=== PATIENT | male | born 1970 | race Caucasian/White ===

== ENCOUNTER 2018-05-15 10:41 | Inpatient (IN) | payer MEDICARE, BC ==
[~2018-05-15] VITALS: Ht 185.4 cm; Wt 73.0 kg
[2018-05-15 10:49] VITALS: BP 190/87
[2018-05-15] MEDS ORDERED: ASTAGRAF XL1 MG PO (10:57)
[2018-05-15] MEDS ORDERED: ONDANSETRON ODT8 MG PO (10:57)
[2018-05-15] MEDS ORDERED: HYDRALAZINE 2525 MG PO ×2 (10:58→11:00)
[2018-05-15] MEDS ORDERED: TRAZODONE HCL50 MG PO (10:58)
[2018-05-15] MEDS ORDERED: PRAVACHOL20 MG PO (10:58)
[2018-05-15] MEDS ORDERED: COREG25 MG PO (10:59)
[2018-05-15] MEDS ORDERED: MYCOPHENOLIC A360 MG PO (10:59)
[2018-05-15] MEDS ORDERED: AMITRIPTYLINE H10 M3 PO (11:00)
[2018-05-15] MEDS ORDERED: PLAVIX 75 MG TA75 M1 PO (11:01)
[2018-05-15 11:21] LABS: ABSOLUTE BASOPHILS 0.1 thou/uL (0.0-0.2); ABSOLUTE EOSINOPHILS 0.4 thou/uL (0.0-0.7); ABSOLUTE LYMPHOCYTES 0.8 thou/uL (0.8-5.3); ABSOLUTE MONOCYTES 0.8 thou/uL (0.0-1.2); ABSOLUTE NEUTROPHILS 5.8 thou/uL (1.6-8.1); EOSINOPHILS 4.8 %; HEMATOCRIT 34.9 % (42.0-52.0); HEMOGLOBIN 11.4 gm/dL (14.0-18.0); LYMPHOCYTES 10.1 %; MCH 29.5 pg (26.0-34.0); MCHC 32.7 g/dL (28.0-37.0); MCV 90.4 fL (80.0-100.0); MONOCYTES 10.6 %; MPV 8.3 fl. (7.2-11.1); NUCLEATED RBCS 0 /100WBC; PLATELET COUNT* 165 thou/uL (150-400); POLYS 73.5 %; RBC 3.86 mil/uL (4.50-6.00); RDW-CV 17.2 % (10.5-14.5); WBC 7.9 thou/uL (4.0-11.0)
[2018-05-15 11:29] LABS: APTT 28.5 Seconds (25.0-31.3); INR 1.1; PROTIME 10.9 Seconds (9.20-11.50)
[2018-05-15 11:36] LABS: ANION GAP 11 mmol/L (7-16); BUN 64 mg/dL (7-18); CALCIUM 8.8 mg/dL (8.5-10.1); CHLORIDE 95 mmol/L (98-107); CO2 28 mmol/L (21-32); CREATININE 15.8 mg/dL (0.6-1.3); GLUCOSE 150 mg/dL (70-99); SODIUM 134 mmol/L (136-145)
[2018-05-15 11:37] LABS: POTASSIUM 6.5 mmol/L (3.5-5.1)
[2018-05-15 11:41] LABS: ALBUMIN 3.5 g/dL (3.4-5.0); ALKALINE PHOSPHATASE 70 U/L (46-116); SGOT 24 U/L (15-37); SGPT 18 U/L (30-65); TOTAL BILIRUBIN 0.6 mg/dL (<0.1-1.0); TROPONIN-I LEVEL <0.06 ng/mL (<0.06)
[2018-05-15 11:42] LABS: NT-PRO BRAIN NAT PEPTIDE > 35000 pg/mL (<300)
[2018-05-15 14:08] VITALS: BP 189/77
--- NOTE | 2018-05-15 16:30 | NUR ---
PT REPORT RECIEVED FROM ED NURSE. PT STRAIGHT WENT FOR DIALYSIS. CALLED STATING TO GIVE 100 MG HYDRALAZINE PO IN THE DIALYSIS. MEDICINE TAKEN TO DIALYSIS AND GIVEN, BP-225/112MMHG. PT WAS ALERT.
--- NOTE | 2018-05-15 16:41 | EKG ---
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: Maggie LOFTON : 1970 Requested By: Virgilio Huynh Order Number: [id number] MD: Alireza Arnold Measurements Intervals Bowman Rate: 68 P: 18 AL: 139 QRS: -15 QRSD: 91 T: 93 QT: 403 QTc: 429 Interpretive Statements Sinus rhythm Borderline left axis deviation Borderline T wave abnormalities No previous ECG available for comparison Electronically Signed On 05-15-2018 16:41:07 CDT by Alireza Arnold [email or web address] <ELECTRONICALLY SIGNED> By: Alireza Arnold MD, [facility] 05/15/18 1641 57 Alireza Arnold MD, FACC /EPI
[2018-05-15 18:00] VITALS: BP 146/72
--- NOTE | 2018-05-15 18:59 | NUR ---
PT RECIEVED FROM DIALYSIS AT 1800. ALERT AND ORIENTED X4. SAT MAINTAINED IN RA. CALL LIGHT WITHIN REACH AND FALL PRECAUTIONS MAINTAINED. SR RUNNING ON TELE MONITOR. UP WITH STANDBY ASSIST. VSS AND RECORDED. 4L FLUID TAKEN OF DIALYSIS. DENIES ANY PAIN AND SOB AT THE MOMENT. HAS ADEQUATE APETITE. HAS FISTULA ON LEFT WRIST. NO SIGNS OF BLEEDING. WILL CONTINUE TO MONITOR.
[2018-05-15] MEDS ORDERED: PROGRAF5 MG PO (19:10)
[2018-05-15] MEDS ORDERED: MYFORTIC360 MG PO (19:10)
--- NOTE | 2018-05-15 19:12 | NUR ---
PT COMPLAINED OF ITCHINESS ON HIS BACK AND HEAD, INFORMED DR. ORDAZ, NO ORDERS AT THE MOMENT. STATED WILL KEEP AN EYE ON HIM.
[2018-05-15 19:40] VITALS: BP 145/70
[2018-05-16] VITALS: BP 177/89
[2018-05-16 04:00] VITALS: BP 192/97
[2018-05-16 08:00] VITALS: BP 184/92
[2018-05-16 08:14] LABS: CALCIUM 8.6 mg/dL (8.5-10.1); POTASSIUM 5.6 mmol/L (3.5-5.1)
[2018-05-16 08:15] LABS: CREATININE 10.7 mg/dL (0.6-1.3)
--- NOTE | 2018-05-16 11:42 | NUR ---
Spoke with Pt's via phone. Pt out of room at dialysis. informs that Pt was current at [facility], they have recently moved to [place] and Pt has been transferred to [facility], but Pt does not have transportation, their car was recently repossessed. DEV spoke with and , CM will try and get Pt transferred to the [facility] BS clinic, CM called [facility] and confirmed that they do have chair availability. CM spoke with SW at [facility], the only transportation options available in [facility] is the [employer] bus [phone], [employer] does not provide transportation on the weekend. CM contacted [employer], transportation would cost $62/round trip each day that Pt needs to be at dialysis. informed that they are unable to afford this amt at this time. did ask that CM continue to work on the transfer to [facility] and she will check with some friends that live in the same mobile home park to see if they can help with transportation. CM faxed facesheet to Fiordaliza at [facility], to determine if Pt will qualify for [place], if Pt does, Pt will be able to use [employer] transportation. [employer] is not available in this area. states that Pt is normally independent, she completes the cooking and cleaning. Pt uses home o2, provided through [employer]. Pt has been on dialysis since 2013. No hx of HH or SNF. DC mission planner to contact [facility] admissions to determine their ability to accept Pt. Following.
[2018-05-16 12:50] VITALS: BP 187/99
--- NOTE | 2018-05-16 14:00 | NUR ---
OFFICE EXECUTIVE SPOKE TO BHAVNA (INTAKE, PATIENT ADMISSION SERVICES) WITH [facility]. D/C TIMBER SURVEYOR INFORMED BHAVNA OF PATIENT'S SITUATION AND REQUEST TO UTILIZE [facility] FOR DIALYSIS. BHAVNA INFORMS THAT THE PATIENT WOUDL NEED TO BE PROCESSED A NEW ADMISSION, AND [facility] IS ABLE TO REQUEST INFO FROM THE [facility]. BHAVNA INFORMS THAT A ECONOMIC DEVELOPER WILL CONTACT CM TO F/U AND IFNOR OF ADDITIONAL INFO NEEDED. D/C TIMBER SURVEYOR FAXED [facility] ADMISSIONS THE DIALYSIS ADMISSIONS CHECKLIST, PATIENT'S FACESHEET, H&P, LABS, FLOW SHEETS. CM WILL REMAIN AVIALABLE TO ASSIST AND FOLLOW NEEDED.
[2018-05-16 15:34] VITALS: BP 154/75
--- NOTE | 2018-05-16 18:48 | NUR ---
RECEIVED REPORT. ASSUMED CARE OF PT AROUND 0730. PT A&O X4, VSS, O2 SAT >90% ON RA. PT STATED THAT HE USES O2 2L PER NC PRN AT HOME - OXYGEN TUBING PROVIDED AND PT USED 2L PER NC NEEDED; O2 SATS REMAINED >90%. CARE TRANSITIONS MANAGER IN PLACE TRACING SR WITH NO CHANGES THIS SHIFT. AM ASSESSMENT AND VITALS COMPLETED CHARTED. PT DENIED PAIN OR DISCOMFORT THIS SHIFT. PT WENT FOR DIALYSIS THIS AM AND RETURNED AROUND 1250. PT TOLERATING DIET. PT ABLE TO SHOWER THIS AFTERNOON. IV INTACT. PT'S CALLED - UPDATE GIVEN. CASE MANAGEMENT WORKING WITH PT TO ARRANGE OUTPATIENT DIALYSIS CARE. PT CURRENTLY RESTING IN BED. CALL LIGHT IS WITHIN REACH. FALL PRECAUTIONS ARE IN PLACE. HOURLY ROUNDING PERFORMED.
[2018-05-16 19:08] LABS: HEPATITIS B SURFACE AG Negative (Negative)
[2018-05-16 19:10] VITALS: BP 131/71
--- NOTE | 2018-05-16 23:00 | NUR ---
ASSESSMENT COMPLETE. VSS AT THIS TIME. PT DID C/O NAUSEA, MEW ORDER RECEIVED FOR PO ZOFRAN. PT DENIES PAIN OR ANY FURTHER NEEDS. PT TRACING SR ON TELEMETRY. CLWR.
[2018-05-17 04:21] VITALS: BP 166/80
--- NOTE | 2018-05-17 06:35 | NUR ---
PT S;EPT WELL T/O THIS SHIFT. NO C.O PAIN. PT REPORTS THAT ZOFRAN WAS EFFECTIVE FOR NAUSEA AND REPORTS THAT HE GETS NAUSEATED FREQUENTLY AND USES ZOFRAN AT HOME WELL. NO URINE OUTPUT THIS SHIFT PT REPORTS THAT THIS IS HIS BASELINE.
[2018-05-17 08:19] VITALS: BP 163/75
[2018-05-17 12:18] VITALS: BP 137/66
[2018-05-17 16:24] VITALS: BP 141/74
--- NOTE | 2018-05-17 18:02 | NUR ---
PT WITHOUT C/O TODAY. PT ABLE TO MAKE NEEDS KNOWN,CALL LIGHT IN REACH
[2018-05-17 19:00] VITALS: BP 138/70
--- NOTE | 2018-05-17 22:35 | NUR ---
INITIAL ASSESSMENT COMPLETE. PT TRACING SR ON MONITOR. VSS. PT DENIES PAIN, N/V/D. PT IS UP INDEPENDENT TO BR. NO URINE OUTPUT PT IS OLIGURIC. SEE ASSESSMENT FOR FURTHER DETAILS. CLWR.
[2018-05-18] VITALS (7 sets, daily range): BP systolic 131–157; BP diastolic 67–77
--- NOTE | 2018-05-18 06:06 | NUR ---
PT HAS SLEPT WELL T/O THIS SHIFT. NO NEW CONCERNS. CLWR
--- NOTE | 2018-05-18 08:29 | NUR ---
PT SITTING UP ON SIDE OF BED, APPEARS ALERT O X 4, DENIES CHEST PAIN, SOB, PAIN OR DISCOMFORT
[2018-05-19 04:13] VITALS: BP 166/79
--- NOTE | 2018-05-19 04:46 | NUR ---
VITALS WNL. SEE MAR. SEE CHARTING. HOURLY ROUNDING FOR SAFETY.
[2018-05-19 04:53] LABS: ABSOLUTE BASOPHILS 0.1 thou/uL (0.0-0.2); ABSOLUTE EOSINOPHILS 0.3 thou/uL (0.0-0.7); ABSOLUTE LYMPHOCYTES 1.1 thou/uL (0.8-5.3); ABSOLUTE MONOCYTES 0.6 thou/uL (0.0-1.2); ABSOLUTE NEUTROPHILS 3.3 thou/uL (1.6-8.1); BASOPHILS 0.9 %; EOSINOPHILS 5.7 %; HEMOGLOBIN 11.5 gm/dL (14.0-18.0); LYMPHOCYTES 20.6 %; MCH 29.9 pg (26.0-34.0); MCHC 32.9 g/dL (28.0-37.0); MCV 90.9 fL (80.0-100.0); MONOCYTES 11.4 %; MPV 8.2 fl. (7.2-11.1); NUCLEATED RBCS 0 /100WBC; PLATELET COUNT* 167 thou/uL (150-400); POLYS 61.4 %; RBC 3.85 mil/uL (4.50-6.00); RDW-CV 16.2 % (10.5-14.5); WBC 5.4 thou/uL (4.0-11.0)
[2018-05-19 05:21] LABS: CALCIUM 8.5 mg/dL (8.5-10.1); CREATININE 11.4 mg/dL (0.6-1.3); POTASSIUM 4.8 mmol/L (3.5-5.1)
[2018-05-19 08:15] VITALS: BP 147/75
--- NOTE | 2018-05-19 09:13 | NUR ---
Spoke with [facility], regarding Pt transferring to the [place] location, BS clinic is reviewing and will request records from [facility]. They have a T-TH-Sat chair time available, should have a decision by the end of the day.
--- NOTE | 2018-05-19 09:49 | NUR ---
ASSUMED PT CARE AT 0730, FULL ASSESMENT DONE CHARTED. PT A/O X4, DENIES PAIN, VSS, SR ON THE MONITOR. PT TO HAVE DIALYSIS TODAY, PT WANTS TO KNOW IF HE WILL DC HOME AFTER DIALYSIS. NO ORDERS AT THIS TIME. PT USES CALL LIGHT APPROPRIALTY, UP AD KIRSTEN IN ROOM. WILL CONTINUE WITH PLAN OF CARE.
[2018-05-19 12:00] VITALS: BP 108/75
[2018-05-19] MEDS ORDERED: PHOSLO667 MG PO (12:55)
[2018-05-19] MEDS ORDERED: NORVASC10 MG PO (13:04)
[2018-05-19 14:20] VITALS: BP 108/75
--- NOTE | 2018-05-19 14:48 | NUR ---
CARBON COATING MACHINE OPERATOR CONTACTED [facility] ADMISSION SERVICES AND LEFT A VOICEMAIL FOR GERHARD (COORDINATOR) TO RETURN CALL TO DISCUSS ABILITY TO ACCEPT PATIENT FOR SERVICE IN THE [facility]. CM WILL REMAIN AVIALABLE TO ASSIST AND FOLLOW NEEDED.
[2018-05-19 15:15] VITALS: BP 122/65
--- NOTE | 2018-05-19 16:06 | NUR ---
DEV spoke with pediatric clinical dietician at [facility], she is requesting today's flowsheet and another copy of Hep B labs (previous copy was too dark). DEV faxed. Per pediatric clinical dietician, should have a decision tomorrow.
[2018-05-19 20:00] VITALS: BP 133/70
[2018-05-20] VITALS: BP 145/74
--- NOTE | 2018-05-20 00:21 | NUR ---
PT ALERT ORIENTED. AMBULATING IN HALLS. O2 AT 2 LITERS NC. PT REMOVES AT TIMES. ALSO HOME O2 AT 2 LITERS NC. MEDSURG STATUS. DENIES PAIN. L ARM AV FISTULA +THRILL +BRUIT.
[2018-05-20 04:00] VITALS: BP 155/75
[2018-05-20 07:55] VITALS: BP 141/66
--- NOTE | 2018-05-20 10:01 | NUR ---
Spoke with [facility], they have accepted Pt for a -Sat schedule, chair time will be 1130am. Awaiting confirmation fax. Pt to have dialysis today and dc afterwards. Pt to start at [facility] on 05/22.
--- NOTE | 2018-05-20 10:19 | NUR ---
SPOKEM WITH DR. BROOKS ABOUT DIALYSIS TODAY PRIOR TO DC DUE TO PATIENTS DAYS CHANGING TO T-TH-SAT AT [facility]. PER DR. BROOKS HE WILL SET HIM UP FOR DIALYSIS LATER THIS AFTERNOON. PATIENT INFORMED OF ABOVE INFORMATION.
--- NOTE | 2018-05-20 11:43 | NUR ---
PATIENT LEFT FOR DIALYSIS AT THIS TIME
[2018-05-20 16:34] VITALS: BP 146/72
--- NOTE | 2018-05-20 16:58 | NUR ---
PATIENT WAITING FOR [facility] TO TRANSPORT HOME. PER SHE HAS MADE ARRANGEMENTS FOR TRANSPORTATION TO DIALYSIS. PATIENT VERBALIZED UNDERSTANDING OF DC INSTRUCTIONS. IV REMOVED. DIALYSIS THIS AFTERNOON. VSS.
--- NOTE | 2018-05-20 16:58 | NUR ---
NURSING DOCUMENTATION BY PETR FAM REVIEWED.
[2018-05-20 17:20] VITALS: BP 146/72
--- NOTE | 2018-05-20 18:19 | NUR ---
PATIENT DISCHARGED WITH [facility] AT THIS TIME. VERBALIZED UNDERSTANDING OF DC INSTRUCTIONS. IV REMOVED. SCRIPT FOR NORVASC GIVEN.
--- NOTE | 2018-06-13 10:12 | CON ---
[address] [address] CONSULTATION Name: ASHTONANA Room: [address] IN M.R.#: [id number] Admission: 05/15/18 Attend Phys: Arabella Perez MD Discharge: 05/20/18 Date of : 72 Report #: [id number] THIS REPORT FOR: //name// CC: Richardson Perez DATE OF SERVICE: 05/16/2018 CONSULTING PHYSICIAN: Dr. Perez. REASON FOR NEPHROLOGY CONSULTATION: 1. End-stage renal disease. 2. Dialysis. REASON FOR ADMISSION: Hyperkalemia, missed dialysis. HISTORY OF PRESENT ILLNESS: This is a 47-year-old male who has past medical of end-stage renal disease, on hemodialysis every Saturday, Saturday and Saturday, who missed his dialysis for the last 3 treatments prior coming to the hospital yesterday. The patient has been on dialysis for the last 2 years and recently moved from [place] to [facility]. He was supposed to go to [facility] dialysis Unit, but he had lack of transportation and could not go for dialysis for the last 3 treatments. He came in yesterday with high blood pressures and his potassium was 6.5 and he was immediately dialyzed yesterday with 4 liters fluid removal and he was seen on dialysis again this morning. He is feeling now better. aquacultural worker supervisor here in the hospital is going to work with him for dialysis placement. ALLERGIES: ERYTHROMYCIN. REVIEW OF SYSTEMS: As mentioned in history of present illness, otherwise negative. He is not having shortness of breath, nausea, vomiting. He does not make much urine at all. HOME MEDICATIONS: Included ondansetron, pravastatin, trazodone, carvedilol, hydralazine, amitriptyline, ____, tacrolimus, mycophenolate. PAST MEDICAL AND SURGICAL HISTORY: Includes he is an end-stage renal disease patient, kidney transplant, pancreas transplant in 2009 and 3 cardiac stents and myocardial infarction. FAMILY HISTORY: Heart disease and hypertension. SOCIAL HISTORY: He lives at home with his . He is a current everyday smoker. Does not use drugs and [place] [address] CONSULTATION Name: KRISTINE ASHTON Room: [address]#: [id number] Admission: 05/15/18 Attend Phys: Arabella Perez MD Discharge: 05/20/18 Date of : 72 Report #: [id number] PHYSICAL EXAMINATION: VITAL SIGNS: Blood pressure is 184/92, respiratory rate 17, pulse rate is 83, temperature is 36.8. His pulse ox is 94% on room air. GENERAL: He is awake and alert, seen in dialysis. VITAL SIGNS: Stable. HEAD, EYES, EARS, NOSE AND THROAT: Mucous membranes are moist. NECK: There is no JVD. CHEST: Clear to auscultation bilaterally. No crackles or wheezing heard anteriorly. CARDIOVASCULAR: S1, S2 normal. No murmurs or rubs. ABDOMEN: Soft, nondistended, nontender. Bowel sounds present. EXTREMITIES: No lower extremity edema. Left arm AV fistula in use. NEUROLOGICAL FUNCTION: Gross neurological function is intact. PSYCHIATRIC: Mood and affect seems to be normal. LABORATORY DATA: His hemoglobin is 11.4. His potassium is 5.6. His sodium is 135. His chloride is 96. His BUN is 36. Other labs were reviewed. IMAGING: Chest x-ray was reviewed. ASSESSMENT: 1. End-stage renal disease, on hemodialysis, Saturday, Saturday and Saturday, missed dialysis before coming to the hospital. 2. Hyperkalemia, has improved after dialysis, 5.6 now. 3. Accelerated hypertension, he is improved after fluid removal with dialysis. 4. Anemia of chronic renal disease, hemoglobin 11.4, which is currently above goal. 5. History of diabetes type 2. 6. History of kidneys and pancreas transplant, on immunosuppressant therapy. PLAN: 1. Continue his immunosuppressant medication after verifying his dose. 2. He was seen on dialysis today and he was also dialyzed yesterday with 4 liters fluid removal. I think he should be okay for dialysis for next dialysis on Saturday now. Thank you for this consultation. I discussed above with the patient as well the patient's dialysis nurse. We will continue to follow along with you. <ELECTRONICALLY SIGNED> By: Tere Evans MD 06/13/18 1012 0924 0020Tere Evans MD /nt
== END 2018-05-20 18:23 | disposition home or self-care (01) | DRG 640 ==
LOC: M.ERS 10:41 → M.2W 12:02 → M.TBA-ER 12:02 → M.2W 14:27
PROVIDERS: Emergency Medicine Emergency Medical Services; Internal Medicine; ADMIT Family Medicine
PROC: 5A1D70Z Performance of Urinary Filtration, Intermittent, Less than 6 Hours Per Day (ICD-10-PCS; principal; 2018-05-16)
DX: E87.70 Fluid overload, unspecified (principal); N18.6 End stage renal disease; I12.0 Hypertensive chronic kidney disease with stage 5 chronic kidney disease or end stage renal disease; J96.10 Chronic respiratory failure, unspecified whether with hypoxia or hypercapnia; Z94.83 Pancreas transplant status; E87.5 Hyperkalemia; E11.22 Type 2 diabetes mellitus with diabetic chronic kidney disease; I25.10 Atherosclerotic heart disease of native coronary artery without angina pectoris; F17.210 Nicotine dependence, cigarettes, uncomplicated; D63.1 Anemia in chronic kidney disease; Z99.2 Dependence on renal dialysis; Z91.15 Patient's noncompliance with renal dialysis; Z79.899 Other long term (current) drug therapy; Z88.1 Allergy status to other antibiotic agents; Z95.5 Presence of coronary angioplasty implant and graft; I25.2 Old myocardial infarction; Z82.49 Family history of ischemic heart disease and other diseases of the circulatory system

== ENCOUNTER 2018-10-19 16:17 | Inpatient (IN) | payer MEDICARE, BC, MEDICAID ==
[~2018-10-19] VITALS: Ht 152.4 cm; Wt 80.7 kg
[~2018-10-19 16:17] MED LIST: AMITRIPTYLINE H10 M3 PO; ASTAGRAF XL1 MG PO; COREG25 MG PO; HYDRALAZINE 2525 MG PO; MYCOPHENOLIC A360 MG PO; MYFORTIC360 MG PO; NORVASC10 MG PO; ONDANSETRON ODT8 MG PO; PHOSLO667 MG PO; PLAVIX 75 MG TA75 M1 PO; PRAVACHOL20 MG PO; PROGRAF5 MG PO; TRAZODONE HCL50 MG PO
--- NOTE | 2018-10-19 16:30 | NUR ---
PT ARRIVED VIA AMBULANCE. TRANSFERRED FROM [facility] TO ER BED. EKG PERFORMED BY JEREMÍAS CARMONA. GIVEN TO DR. GORDON WHO IS IN ROOM. DR. GORDON CANCELLED CODE STEMI.
[2018-10-19 16:32] VITALS: BP 184/113
--- NOTE | 2018-10-19 16:43 | NUR ---
RADIOLOGY AT BEDSIDE PERFORMING CHEST XRAY.
[2018-10-19 16:52] LABS: ABSOLUTE BASOPHILS 0.1 thou/uL (0.0-0.2); ABSOLUTE EOSINOPHILS 0.3 thou/uL (0.0-0.7); ABSOLUTE LYMPHOCYTES 1.3 thou/uL (0.8-5.3); ABSOLUTE MONOCYTES 0.9 thou/uL (0.0-1.2); ABSOLUTE NEUTROPHILS 5.1 thou/uL (1.6-8.1); BASOPHILS 0.7 %; EOSINOPHILS 4.3 %; HEMOGLOBIN 14.8 gm/dL (14.0-18.0); MCH 31.2 pg (26.0-34.0); MCHC 33.6 g/dL (28.0-37.0); MCV 92.7 fL (80.0-100.0); MONOCYTES 11.2 %; MPV 7.8 fl. (7.2-11.1); NUCLEATED RBCS 0 /100WBC; PLATELET COUNT* 254 thou/uL (150-400); POLYS 66.8 %; RBC 4.74 mil/uL (4.50-6.00); RDW-CV 16.5 % (10.5-14.5); WBC 7.6 thou/uL (4.0-11.0)
[2018-10-19] MEDS ORDERED: MYFORTIC180 MG PO (16:55)
[2018-10-19] MEDS ORDERED: RENVELA800 MG PO (16:56)
[2018-10-19 17:02] LABS: APTT 26.6 Seconds (25.0-31.3); PROTIME 10.4 Seconds (9.20-11.50)
[2018-10-19 17:11] LABS: ALBUMIN 4.2 g/dL (3.4-5.0); ALKALINE PHOSPHATASE 97 U/L (46-116); ANION GAP 10 mmol/L (7-16); BUN 36 mg/dL (7-18); CALCIUM 9.3 mg/dL (8.5-10.1); CHLORIDE 91 mmol/L (98-107); CHOLESTEROL 121 mg/dL (<200); CO2 32 mmol/L (21-32); CREATININE 9.1 mg/dL (0.6-1.3); GLUCOSE 102 mg/dL (70-99); HDL CHOLESTEROL 48 mg/dL (>40); LDL CHOLESTEROL 55 mg/dL (<100); MAGNESIUM 2.7 mg/dL (1.8-2.4); POTASSIUM 5.7 mmol/L (3.5-5.1); SGOT 22 U/L (15-37); SGPT 13 U/L (30-65); SODIUM 133 mmol/L (136-145); TC:HDL 2.5 Ratio (Not establshd); TOTAL BILIRUBIN 0.7 mg/dL (<0.1-1.0); TOTAL PROTEIN 8.1 g/dL (6.4-8.2); TRIGLYCERIDE 91 mg/dL (<150); TROPONIN-I LEVEL 0.08 ng/mL (<0.06); VLDL 18 mg/dL (<40)
[2018-10-19 17:12] LABS: SERUM ASSESSMENT Clear
--- NOTE | 2018-10-19 17:46 | NUR ---
PATIENT GIVES HIS PERMISSION TO THIS NURSE TO GIVE HIS , GUILLE ASHTON (DANNER) ANY INFORMATION REQUESTED ON THE PATIENT'S PLAN OF CARE OR ON HIS BEHALF. THE PATIENT'S , GUILLE, CALLED AND ASKED ABOUT THE PATIENT'S CONDITION WHICH WAS COMMUNICATED TO HER. THE PATIENT'S TOLD THIS NURSE THAT THE PATIENT HAD 3 PREVIOUS STENTS PLACED IN HIS HEART; THREE WEEKS AGO, THE PATIENT HAD A FOURTH STENT PLACED AT [facility] DUE TO 90% BLOCKAGE. THE PATIENT'S THEN STATES THAT THE PATIENT HAS BEEN NONCOMPLIANT WITH TAKING ALL OF HIS MEDICATIONS, INCLUDING HIS ANTI-REJECTION MEDICATION SINCE HAVING HIS FOURTH STENT PLACED 3-4 WEEKS AGO. THIS INFORMATION WAS COMMUNICATED TO DR. GORDON. THE PATIENT'S , GUILLE, IS THE PATIENT'S DPOA AND REPORTS THAT SHE HAS ALL LEGAL PAPERWORK STATING THIS.
--- NOTE | 2018-10-19 18:13 | NUR ---
PT REQUESTED FOOD. PT GIVEN A SANDWICH, JELLO AND SPRITE WITH DR. GORDON'S APPROVAL. PT CAN EAT UNTIL MIDNIGHT, BUT THEN WILL REMAIN NPO PER DR. GORDON'S ORDERS.
[2018-10-19 18:43] VITALS: BP 162/93
[2018-10-19 20:10] VITALS: BP 153/86
[2018-10-20] VITALS: BP 135/73
[2018-10-20 04:00] VITALS: BP 156/82
--- NOTE | 2018-10-20 04:55 | NUR ---
PT CARE ASSUMED AT 1930. SAT MAINTAINED IN 2L NC. ALERT AND ORIENTED X4. CALL LIGHT WITHIN REACH AND BED IN LOW POSITION. DENIES PAIN AND SOB. HEPARIN DRIP RUNNING. HOURLY ROUNDING DONE FOR PT SAFETY.
--- NOTE | 2018-10-20 09:15 | NUR ---
REC'D REPORT FROM NOC RN, ASSUMED CARE OF PATIENT APPROX 0730. A&Ox4, ABLE TO COMMUNICATE NEEDS TO STAFF. ASSESSMENT COMPLETE, VS OBTAINED. GROUP BILLING COORDINATOR IN PLACE, SR. O2 SAT: 97% 2L O2. UP AD KIRSTEN IN ROOM WITH NONSKID SOCKS ON BLE. CALL LIGHT WITHIN REACH. HOURLY ROUNDING FOR SAFETY AND PT NEEDS.
[2018-10-20 10:05] VITALS: BP 147/83
[2018-10-20 11:41] VITALS: BP 158/87
[2018-10-20 15:40] VITALS: BP 157/84
[2018-10-20 22:15] VITALS: BP 118/62
[2018-10-21] VITALS: BP 124/58
[2018-10-21 04:00] VITALS: BP 139/61
--- NOTE | 2018-10-21 05:04 | NUR ---
PT CARE ASSUMED AT 1930. SAT MAINTAINED IN RA. ALERT AND ORIENTED X4. CALL LIGHT WITHIN REACH AND BED IN LOW POSITION. DENIES PAIN AND SOB. HOURLY ROUNDING DONE FOR PT SAFETY.
[2018-10-21 05:55] LABS: ALBUMIN 3.2 g/dL (3.4-5.0); CALCIUM 8.9 mg/dL (8.5-10.1); CREATININE 9.3 mg/dL (0.6-1.3); POTASSIUM 4.9 mmol/L (3.5-5.1)
--- NOTE | 2018-10-21 07:30 | NUR ---
ASSUMED CARE OF PT ASSESSED AND DOCUMENTED. PT IS ON CARDIAC MONITER TRACING SR HR 77. HE IS A&O WITH NO C/O PAIN. VSS WNL. PT IS ON ROOM AIR. HE IS AFEBRILE. PT HAS A L HAND FISTULA. PT BEING TAKEN TO DYALYSIS. HE REMAINS NPO FOR STRESS TEST TODAY.
[2018-10-21 07:34] VITALS: BP 153/78
[2018-10-21 08:00] VITALS: BP 153/78
--- NOTE | 2018-10-21 10:01 | EKG ---
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: : 1970 Requested By: Lester Lopez Order Number: [id number] MD: Jason Mota Measurements Intervals [place] Rate: 75 P: 45 [place]: 141 QRS: -20 QRSD: 96 T: 118 QT: 418 QTc: 467 Interpretive Statements Sinus rhythm Probable left atrial enlargement LVH with secondary repolarization abnormality Anterior ST elevation, probably due to LVH Compared to ECG 05/15/2018 10:58:17 Left ventricular hypertrophy now present Early repolarization now present ST (T wave) deviation now present T-wave abnormality no longer present Electronically Signed On 10-21-2018 10:01:00 CDT by Jason Mota [email or web address] <ELECTRONICALLY SIGNED> By: Jason Mota MD, FACC 10/21/18 1001 1630 1630 Jason Mota MD, FAC /EPI
--- NOTE | 2018-10-21 10:01 | EKG ---
[place] [address] ELECTROCARDIOGRAM REPORT Name: KRISTINE ASHTON Room: [address] ADM IN M.R.#: [id number] Admission: 10/19/18 Attend Phys: Priti Queen Discharge: Date of : 72 Report #: [id number] THIS REPORT FOR: //name// [facility] ED Test Date: 2018-10-19 Test Time: 17:20:05 Pat Name: KRISTINE ASHTON Department: Room: [address] Gender: M Dock Loader: Maggie GANDHI : 1970 Requested By: Lester Lopez Order Number: [id number] Reading MD: Jason Mota Measurements Intervals Cash Rate: 72 P: 27 [place]: 143 QRS: -19 QRSD: 97 T: 121 QT: 388 QTc: 425 Interpretive Statements Sinus rhythm Probable left atrial enlargement LVH with secondary repolarization abnormality Anterior ST elevation, probably due to LVH Compared to ECG 05/15/2018 10:58:17 Left ventricular hypertrophy now present Early repolarization now present ST (T wave) deviation now present T-wave abnormality no longer present Electronically Signed On 10-21-2018 10:01:32 CDT by Jason Mota [email or web address] <ELECTRONICALLY SIGNED> By: Jason Mota MD, FACC 10/21/18 1001 1720 1720 Jason Mota MD, FAC /EPI
--- NOTE | 2018-10-21 10:01 | EKG ---
[place] [address] ELECTROCARDIOGRAM REPORT Name: KRISTINE ASHTON Room: [address] ADM IN .R.#: [id number] Admission: 10/19/18 Attend Phys: Priti Queen Discharge: Date of : 72 Report #: [id number] THIS REPORT FOR: //name// [facility] ED Test Date: 2018-10-19 Test Time: 16:29:51 Pat Name: KRISTINE ASHTON Department: Room: [facility] Gender: M Director Of Property Management: : 1970 Requested By: Lester Lopez Order Number: [id number] MD: Jason Mota Measurements Intervals [place] Rate: 78 P: 40 IN: 164 QRS: -21 QRSD: 95 T: 115 QT: 405 QTc: 462 Interpretive Statements Sinus rhythm Left atrial enlargement LVH with secondary repolarization abnormality Anterior ST elevation, probably due to LVH Compared to ECG 05/15/2018 10:58:17 Atrial abnormality now present Left ventricular hypertrophy now present Early repolarization now present ST (T wave) deviation now present T-wave abnormality no longer present Electronically Signed On 10-21-2018 10:00:55 CDT by Jason Mota [email or web address] <ELECTRONICALLY SIGNED> By: Jason Mota MD, FACC 10/21/18 1000 1629 1629 Jason Mota MD, [facility] /EPI
--- NOTE | 2018-10-21 10:35 | CON ---
[address] [address] CONSULTATION Name: KRISTINE ASHTON Room: [address] IN ..#: [id number] Admission: 10/19/18 Attend Phys: Priti Queen Discharge: Date of : 72 Report #: [id number] THIS REPORT FOR: //name// CC: [facility] physician/PCP Lonnie King NEPHROLOGY CONSULTATION: CONSULTING PHYSICIAN: Lonnie King DO. REASON FOR CONSULTATION: End-stage kidney disease. HISTORY OF PRESENT ILLNESS: A 48-year-old gentleman with history of end-stage kidney disease who has been admitted with chest pain. Has history of coronary artery disease. He is being followed by Cardiology, currently n.p.o. pending Cardiology evaluation. Currently, has no complaints, felt he had dialysis on Saturday and is otherwise feeling well, has no complaints or concerns at this time. REVIEW OF SYSTEMS: Constitutional, psych, heme, eyes, ENT, respiratory, cardiac, GI, , endocrine, all negative except as documented above. PAST MEDICAL HISTORY: History of end-stage kidney disease, on hemodialysis, coronary artery disease, hypertension, paroxysmal AFib, history of kidney pancreas transplant in 2008, followed at [facility]. CURRENT MEDICATIONS: Reviewed. FAMILY HISTORY: Not pertinent in this 48-year-old gentleman. SOCIAL HISTORY: . PHYSICAL EXAMINATION: VITAL SIGNS: Blood pressure 158/87, pulse 72, temperature 36.8, respirations 18. GENERAL: No acute distress. EYES: Open. EARS: Externally normal. CARDIOVASCULAR: Regular rate. LUNGS: No crackles. ABDOMEN: Soft. MUSCULOSKELETAL: Nontender. PSYCHIATRIC: Awake, alert. LABORATORY DATA: White cell count 7.6, hemoglobin 14.8, platelets 254. Sodium 133, potassium 5.7, chloride 91, bicarbonate 32, BUN 36, creatinine 9.1, glucose 102, calcium 8.0, magnesium 2.7, albumin 4.2[place] [address] CONSULTATION Name: KRISTINE ASHTON Room: [address] IN [facility].#: [id number] Admission: 10/19/18 Attend Phys: Priti Queen Discharge: Date of : 72 Report #: [id number] ASSESSMENT AND PLAN: 1. End-stage kidney disease, hemodialysis Saturday, and Saturday at the [facility] dialysis [facility]. 2. Hyponatremia. 3. Hyperkalemia. 4. Secondary hyperparathyroidism, on sevelamer. 5. Kidney pancreas transplant in 2008, followed at [facility] on MMF and tacrolimus. 6. Coronary artery disease. 7. Hypertension. PLAN: 1. We will dialyze today for elevated potassium. 2. Continue maintenance dialysis. We will plan dialysis again tomorrow to get him back on his normal schedule. 3. He is currently n.p.o. Once diet is resumed, he will need to be on a renal diet with 1.5 liters per day fluid restriction. We will follow for dialysis needs. Thank you for requesting my opinion in the care and management of this patient. <ELECTRONICALLY SIGNED> By: Rajesh Dicekns MD 10/21/18 1035 1226 0912Abipriti Dickens MD /nt
--- NOTE | 2018-10-21 12:37 | NUR ---
PT RETURNED FROM DYALYSIS. PER RN KRISTINE IL REMOVED. PTS BP IS 120/76.
--- NOTE | 2018-10-21 15:54 | NUR ---
INITIAL ASSESSMENT: Pt evaluated for d/c planning needs. Reviewed chart. Pt lives in house with spouse and was independent with ADL's prior to admission to the hospital. Pt has dialysis at [facility]. Pt plans on returning home on d/c from hospital. Will remain available to assist as needed.
[2018-10-21 16:00] VITALS: BP 178/60
[2018-10-21] MEDS ORDERED: DIOVAN40 MG PO (16:35)
[2018-10-21 16:39] VITALS: BP 128/60
--- NOTE | 2018-10-21 17:19 | NUR ---
PT HAS BEEN D/C'D TO HOME. ALL CONSULTS OK WITH D/C. BERTRAM CALLED TO SAY STRESS TEST NORMAL AND RUSLAN STATED FOR PT TO FOLLOW UP WITH DYDEVIKAIS. EDUCATION GIVEN RE MEDICATIONS. FOLLOW-UPS, AND STACIA STONE. LARRY AND CARDIAC MONITER D/C'D. HAVE CALLED FOR CAB AUTOMATIC GRINDING MACHINE OPERATOR. ALL BELONGINGS PACKED UP.
--- NOTE | 2018-10-21 17:32 | NUR ---
PT HAS RESTED IN HIS ROOM WITH CARETAKERS AT SIDE. HE STATES HE WANTS TO WATCH COWBO[employer] ON TV. PT HAS NOTED REDNESS TO HIS SCROTUM. HE CONT ON Q2 HOUR TURN AND REPOSITIONING. MEDICATIONS CRUSHED AND GIVEN WITH APPLESAUCE. INFORMATION SYSTEMS COORDINATOR STATES PT NOT TO WATCH SCARY SHOWS IT AGITATES HIM AND EFFECTS HIS SLEEP. HOURLY ROUNDING CONTINUES.
--- NOTE | 2018-10-21 20:38 | NUR ---
PT LEFT WITH PERSONAL BELONGINGS. TRANSPORTED BY NURSING STAFF TO [facility] AT 1936.
--- NOTE | 2018-10-22 11:33 | CARDNUC ---
[place] [address] CARDIAC NUCLEAR IMAGING REPORT Name: ASHTONKRISTINE Room: [address] IN [facility]#: [id number] Admission: 10/19/18 Attend Phys: Lonnie King Discharge: 10/21/18 Date of : 72 Date of Service: 10/22/18 1133 Report #: [id number] THIS REPORT FOR: //name// APPROVED REPORT Imaging Protocol: Rest Tc-99m/Stress Tc-99m 1 day Study performed: 10/20/2018 12:12:00 Indication: Chest pain, Fatigue Patient Location: In-Patient Room #: 226 Stress Tech: Wanda Joshi Stress Nurse: Tatum Acuna RN NM Tech:HANNY Lamas Ht: 6 ft 0 in Wt: 175 lbs BSA: 2.01 m2 BMI: 23.73 Medical History Medical History: Angina, CAD s/p [place], CAD s/p stent, ESRD/Dialysis, Kidney and Pancreas transplant, Current Smoker, Fatigue, HTN, Hyperlipidemia, Weakness. Medications: Carvedilol, Lipitor, Hydralazine, ASA 81 Mg, Plavix. Allergies: Azithromycin. Cardiac Risk Factors: Age, Current Smoker, FHX of CAD, HTN, Hyperlipidemia, ESRD/Dialysis, Transplants. Previous Cardiac Procedures: Myocardial infarction, PCI. Pretest Chest Pain Characteristics: No chest pain Exercise History: Indeterminate Physical Disabilities: ESRD, Generalized weakness/Fatigue, Two transplants. Meds Held (24 hrs): Carvedilol. Resting Data Rest SPECT myocardial perfusion imaging was performed in supine position 30 minutes following the intravenous injection of 12.0 mCi of Tc-99m Sestamibi. Time of rest injection: 1325 Date: 10/21/2018 The images were gated to evaluate regional wall motion and calculate left ventricular ejection fraction. Administration Route: IV Administration Site: Right [place] [address] CARDIAC NUCLEAR IMAGING REPORT Name: KRISTINE ASHTON Room: [address] IN [facility].#: [id number] Admission: 10/19/18 Attend Phys: Lonnie King Discharge: 10/21/18 Date of : 72 Date of Service: 10/22/18 1133 Report #: [id number] Pharmacologic stress test was performed by injecting Regadenoson 0.4 mg IV push over 10-15 seconds immediately followed by the intravenous injection of 29.3 mCi of Tc-99m Sestamibi. Time of stress injection: 1445 Administration Route: IV Administration Site: Right AC Gated Stress SPECT was performed 40 minutes after stress injection. The images were gated to evaluate regional wall motion and calculate left ventricular ejection fraction. Prone imaging was performed. Stress Test Details Stress Test: Pharmacologic stress testing performed using 0.4 mg of regadenoson per 5 mL given IV over 10 seconds. Reason for pharmacologic stress test: ESRD/Dialysis patient, fatigue/weakness.. 60 mg caffeine given for nausea. HR Max Heart Rate (APMHR): 173 bpm Resting HR: 74 bpm Target HR (85% APMHR): 147 bpm Max HR Achieved: 104 bpm % of APMHR: 60 Recovery HR: 82 bpm HR response to stress: Normal HR response to stress BP Resting BP: 117/72 mmHg Max BP: 104/70 mmHg Recovery BP: 149/82 mmHg BP response to stress: Normal blood pressure response to stress. ECG Resting ECG: Sinus Rhythm with early repolarization changes Stress ECG: Sinus Rhythm with early repolarization changes ST Change: None Arrhythmia: None Recovery ECG: Sinus Rhythm Recovery ST Change: None Clinical Reason for Termination: Completed protocol Stress Symptoms: SOA, Nausea. Exercise duration: 0 min 0 sec Exercise capacity: 1.00 [place] [address] CARDIAC NUCLEAR IMAGING REPORT Name: ASHTONKRISTINE Room: [address]#: [id number] Admission: 10/19/18 Attend Phys: Lonnie King Discharge: 10/21/18 Date of : 72 Date of Service: 10/22/18 1133 Report #: [id number] Nurse Comments 48 year old male inpatient presented after dialysis treatment for stress testing r/t recent CP and increased fatigue. Patient tolerated sitting Lexiscan with some nausea requiring 60 Mg IV caffeine during recovery, effective. Patient escorted via wheelchair by staff to Nuclear Medicine for images. Patient was stable with no complaints at that time. Stress ECG Conclusion nondiagnostic Study Quality Study: Good Artifact: Mild Increased GI uptake Study Data At rest, the left ventricular ejection fraction was 43%.. Post stress, the left ventricular ejection was 45%.. Perfusion STRESS SPECT images show a small mild intensity inferior defect which is noted to be fixed when compared to the SPECT rest images. There is uniform uptake of tracer in all other segments. The prone set shows normalization of the inferior defect indicating it is likely artifact. No reversible defects are seen. Wall Motion mild global dysfunction Nuclear Conclusion ECG Findings: non-diagnostic Clinical Findings: negative for ischemia Nuclear Findings: negative for ischemia Exercise Capacity: not assessed Left Ventricular Function: abnormal Risk Study: low Findings compatible with likely nonischemic cardiomyopathy. No ischemic abnormality [place] [address] CARDIAC NUCLEAR IMAGING REPORT Name: KRISTINE ASHTON Room: [address] IN ..#: [id number] Admission: 10/19/18 Attend Phys: Lonnie King Discharge: 10/21/18 Date of : 72 Date of Service: 10/22/18 1133 Report #: [id number] <Conclusion> nondiagnostic <ELECTRONICALLY SIGNED> By: Jason Mota MD, FACC 10/22/18 1133 1133 113 Jason Mota MD, FACC /INF
== END 2018-10-21 20:39 | disposition home or self-care (01) | DRG 280 ==
LOC: M.ERS 16:17 → M.2W 17:31 → M.TBA-ER 17:31 → M.2W 19:04
PROVIDERS: Family Medicine; Internal Medicine Nephrology; ADMIT Internal Medicine
PROC: 5A1D70Z Performance of Urinary Filtration, Intermittent, Less than 6 Hours Per Day (ICD-10-PCS; principal; 2018-10-20)
PROC: 5A1D70Z Performance of Urinary Filtration, Intermittent, Less than 6 Hours Per Day (ICD-10-PCS; 2018-10-21)
DX: I21.4 Non-ST elevation (NSTEMI) myocardial infarction (principal); N18.6 End stage renal disease; I12.0 Hypertensive chronic kidney disease with stage 5 chronic kidney disease or end stage renal disease; E87.1 Hypo-osmolality and hyponatremia; Z94.83 Pancreas transplant status; Z94.0 Kidney transplant status; E87.5 Hyperkalemia; E78.5 Hyperlipidemia, unspecified; I48.0 Paroxysmal atrial fibrillation; E21.3 Hyperparathyroidism, unspecified; F17.210 Nicotine dependence, cigarettes, uncomplicated; I25.10 Atherosclerotic heart disease of native coronary artery without angina pectoris; Z99.2 Dependence on renal dialysis; I25.2 Old myocardial infarction; Z95.5 Presence of coronary angioplasty implant and graft; Z88.1 Allergy status to other antibiotic agents; Z79.899 Other long term (current) drug therapy

== ENCOUNTER 2019-01-19 12:32 | Inpatient (IN) | payer MEDICARE, MEDICAID ==
[~2019-01-19] VITALS: Ht 182.9 cm; Wt 89.4 kg
[~2019-01-19 12:32] MED LIST changes: +DIOVAN40 MG PO; +MYFORTIC180 MG PO; +RENVELA800 MG PO
[2019-01-19 12:49] LABS: ABSOLUTE BASOPHILS 0.1 thou/uL (0.0-0.2); ABSOLUTE EOSINOPHILS 0.2 thou/uL (0.0-0.7); ABSOLUTE LYMPHOCYTES 0.9 thou/uL (0.8-5.3); ABSOLUTE MONOCYTES 0.6 thou/uL (0.0-1.2); ABSOLUTE NEUTROPHILS 3.9 thou/uL (1.6-8.1); BASOPHILS 1.2 %; EOSINOPHILS 3.6 %; HEMATOCRIT 42.9 % (42.0-52.0); HEMOGLOBIN 14.1 gm/dL (14.0-18.0); LYMPHOCYTES 15.2 %; MCHC 32.8 g/dL (28.0-37.0); MCV 94.5 fL (80.0-100.0); MONOCYTES 11.4 %; MPV 7.9 fl. (7.2-11.1); NUCLEATED RBCS 0 /100WBC; PLATELET COUNT* 251 thou/uL (150-400); POLYS 68.6 %; RBC 4.54 mil/uL (4.50-6.00); RDW-CV 16.3 % (10.5-14.5); WBC 5.6 thou/uL (4.0-11.0)
[2019-01-19 12:56] LABS: ANION GAP 17 mmol/L (7-16); BUN 49 mg/dL (7-18); CALCIUM 8.4 mg/dL (8.5-10.1); CHLORIDE 95 mmol/L (98-107); CO2 26 mmol/L (21-32); CREATININE 10.5 mg/dL (0.6-1.3); GLUCOSE 227 mg/dL (70-99); POTASSIUM 4.7 mmol/L (3.5-5.1); SODIUM 138 mmol/L (136-145)
[2019-01-19 12:58] LABS: APTT 30.3 Seconds (25.0-31.3); INR 1.1; PROTIME 11.7 Seconds (9.20-11.50)
[2019-01-19 13:07] LABS: ALBUMIN 3.5 g/dL (3.4-5.0); ALKALINE PHOSPHATASE 101 U/L (46-116); NT-PRO BRAIN NAT PEPTIDE > 35000 pg/mL (<300); SGOT 16 U/L (15-37); SGPT 10 U/L (30-65); TOTAL BILIRUBIN 0.5 mg/dL (<0.1-1.0); TOTAL PROTEIN 6.9 g/dL (6.4-8.2); TROPONIN-I LEVEL 0.12 ng/mL (<0.06)
--- NOTE | 2019-01-19 14:54 | EKG ---
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1970 Requested By: Lester Lopez Order Number: [id number] MD: Galen Griffith Measurements Intervals [place] Rate: 87 P: 55 LA: 133 QRS: -3 QRSD: 93 T: 55 QT: 409 QTc: 492 Interpretive Statements Sinus rhythm Probable left atrial enlargement Probable left ventricular hypertrophy Borderline prolonged QT interval Compared to ECG 10/19/2018 17:20:05 Early repolarization no longer present ST (T wave) deviation no longer present Electronically Signed On 01-19-2019 14:54:36 CDT by Galen Griffith [email or web address] <ELECTRONICALLY SIGNED> By: Galen Griffith MD, FACC 01/19/19 1454 1238 1238 Galen Griffith MD, [facility] /EPI
[2019-01-19 16:42] VITALS: BP 166/106
[2019-01-19 17:15] VITALS: BP 180/109; BP 199/101; BP 202/109
[2019-01-19 20:00] VITALS: BP 174/80
[2019-01-20] VITALS: BP 170/101
[2019-01-20 04:00] VITALS: BP 206/105
[2019-01-20 05:29] LABS: ABSOLUTE BASOPHILS 0.1 thou/uL (0.0-0.2); ABSOLUTE EOSINOPHILS 0.3 thou/uL (0.0-0.7); ABSOLUTE LYMPHOCYTES 1.2 thou/uL (0.8-5.3); ABSOLUTE MONOCYTES 0.7 thou/uL (0.0-1.2); ABSOLUTE NEUTROPHILS 4.1 thou/uL (1.6-8.1); BASOPHILS 1.4 %; EOSINOPHILS 5.1 %; HEMATOCRIT 43.7 % (42.0-52.0); HEMOGLOBIN 14.5 gm/dL (14.0-18.0); LYMPHOCYTES 18.6 %; MCH 31.1 pg (26.0-34.0); MONOCYTES 10.7 %; MPV 7.7 fl. (7.2-11.1); NUCLEATED RBCS 0 /100WBC; PLATELET COUNT* 273 thou/uL (150-400); POLYS 64.2 %; RBC 4.66 mil/uL (4.50-6.00); RDW-CV 16.7 % (10.5-14.5); WBC 6.3 thou/uL (4.0-11.0)
[2019-01-20 05:49] LABS: ALBUMIN 3.3 g/dL (3.4-5.0); ANION GAP 12 mmol/L (7-16); BUN 57 mg/dL (7-18); CALCIUM 9.1 mg/dL (8.5-10.1); CHLORIDE 98 mmol/L (98-107); CHOLESTEROL 101 mg/dL (<200); CO2 27 mmol/L (21-32); GLUCOSE 104 mg/dL (70-99); HDL CHOLESTEROL 42 mg/dL (>40); LDL CHOLESTEROL 45 mg/dL (<100); POTASSIUM 5.4 mmol/L (3.5-5.1); SODIUM 137 mmol/L (136-145); TC:HDL 2.4 Ratio (Not establshd); TRIGLYCERIDE 74 mg/dL (<150); VLDL 15 mg/dL (<40)
[2019-01-20 06:57] LABS: SERUM ASSESSMENT Clear
[2019-01-20 08:15] VITALS: BP 167/97
--- NOTE | 2019-01-20 15:47 | 2DMMODE ---
[place] [address] 2 D/M-MODE ECHOCARDIOGRAM Name: KRISTINE ASHTON Room: [place] [address] ADM IN [facility]#: [id number] Admission: 01/19/19 Attend Phys: Arabella Perez MD Discharge: Date of : 72 Date of Service: 01/20/19 1547 Report #: [id number] THIS REPORT FOR: //name// APPROVED REPORT Study performed: 01/20/2019 14:05:36 EXAM: Comprehensive 2D, Doppler, and color-flow Echocardiogram Patient Location: In-Patient Room #: [facility] Status: routine BSA: 2.04 HR: 81 bpm BP: 167/97 mmHg Rhythm: NSR Other Information Study Quality: Good Indications CAD 2D Dimensions IVSd: 14.70 (7-11mm) LVOT Diam: 18.95 (18-24mm) LVDd: 47.40 mm PWd: 14.84 (7-11mm) Ascending Ao: 36.75 (22-36mm) LVDs: 32.73 (25-40mm) Aortic Root: 32.75 mm Volumes Left Atrial Volume (Systole) LA ESV Index: 29.10 mL/m2 Aortic Valve AoV Peak Buzz.: 1.96 m/s AO Peak Gr.: 15.39 mmHg LVOT Max P.95 mmHg AO Mean Gr.: 7.53 mmHg LVOT Mean P.17 mmHg LVOT Max V: 1.73 m/s AO V2 VTI: 29.17 cm LVOT Mean V: 1.27 m/s EUSEBIO (VTI): 3.03 cm2 LVOT V1 VTI: 31.33 cm Mitral Valve E/A Ratio: 0.84 MV Decel. Time: 261.93 ms MV E Max Buzz.: 0.77 m/[place] [address] 2 D/M-MODE ECHOCARDIOGRAM Name: KRISTINE ASHTON Room: [address] IN .R.#: [id number] Admission: 01/19/19 Attend Phys: Arabella Perez MD Discharge: Date of : 72 Date of Service: 01/20/19 1547 Report #: [id number] PHT: 75.96 ms MVA (PHT): 2.90 cm2 TDI E/Lateral E': 9.63 E/Medial E': 11.00 Medial E' Buzz.: 0.07 m/s Lateral E' Buzz.: 0.08 m/s Pulmonary Valve PV Peak Buzz.: 1.19 m/s PV Peak Gr.: 5.71 mmHg Tricuspid Valve RAP Estimate: 5.00 mmHg TR Peak Gr.: 14.92 mmHg RVSP: 19.00 mmHg PA Pressure: 19.00 mmHg Left Ventricle The left ventricle is normal size. There is normal LV segmental wall motion. Moderate concentric left ventricular hypertrophy. Left ventricular systolic function is normal. LVEF is 60-65%. Grade I - abnormal relaxation pattern. Right Ventricle The right ventricle is normal size. The right ventricular systolic function is normal. Atria Left atrium is dilated. Right atrium is mildly dilated. Aortic Valve Mild aortic valve sclerosis. No aortic regurgitation is present. There is no aortic valvular stenosis. Mitral Valve The mitral valve is normal in structure. There is no mitral valve regurgitation noted. No evidence of mitral valve stenosis. Tricuspid Valve The tricuspid valve is normal in structure. Mild tricuspid regurgitation. No pulmonary hypertension. Pulmonic Valve The pulmonary valve is normal in structure. There is no pulmonic valvular regurgitation[place] [address] 2 D/M-MODE ECHOCARDIOGRAM Name: ASHTONKRISTINE Room: [address] IN [facility]#: [id number] Admission: 01/19/19 Attend Phys: Arabella Perez MD Discharge: Date of : 72 Date of Service: 01/20/19 1547 Report #: [id number] The aortic root is normal in size. IVC is normal in size and collapses >50% with inspiration. Pericardium There is no pericardial effusion. <Conclusion> The left ventricle is normal size. Moderate concentric left ventricular hypertrophy. Left ventricular systolic function is normal. LVEF is 60-65%. Grade I - abnormal relaxation pattern. Mild aortic valve sclerosis. No aortic regurgitation is present. Mild tricuspid regurgitation. No pulmonary hypertension. IVC is normal in size and collapses >50% with inspiration. Left atrium is dilated. Right atrium is mildly dilated. <ELECTRONICALLY SIGNED> By: Galen Griffith MD, FACC 01/20/19 1547 1547 1547 Galen Griffith MD, FACC /INF
[2019-01-20 20:00] VITALS: BP 157/85
[2019-01-21] VITALS (7 sets, daily range): BP systolic 155–183; BP diastolic 81–90
[2019-01-21 05:40] LABS: CALCIUM 8.9 mg/dL (8.5-10.1); POTASSIUM 5.4 mmol/L (3.5-5.1)
[2019-01-21 05:42] LABS: CREATININE 8.7 mg/dL (0.6-1.3)
[2019-01-21] MEDS ORDERED: ASPIR 8181 MG PO (14:56)
[2019-01-21] MEDS ORDERED: LIPITOR40 MG PO (14:56)
[2019-01-21] MEDS ORDERED: COREG6.25 MG PO (14:56)
[2019-01-21] MEDS ORDERED: ADVAIR HFA 230M12 GM INH (14:57)
--- NOTE | 2019-01-23 15:11 | CON ---
[address] [address] CONSULTATION Name: KRISTINE ASHTON Room: [address] IN ..#: [id number] Admission: 01/19/19 Attend Phys: Arabella Perez MD Discharge: 01/21/19 Date of : 72 Report #: [id number] THIS REPORT FOR: //name// CC: Kenny Miller Arabella Perez DATE OF SERVICE: 01/20/2019 REQUESTING PHYSICIAN: Arabella Perez MD REASON FOR CONSULTATION: Assist in providing dialysis. HISTORY OF PRESENT ILLNESS: The patient is a 48-year-old gentleman, with medical history significant for end-stage renal disease, on chronic dialysis on Saturday, , Saturday schedule at [facility]. He also has history of coronary artery disease, history of kidney and pancreas transplant in the past. He presents with complaints of shortness of breath. Medical problems as described earlier. MEDICATIONS: Reviewed. FAMILY HISTORY: Positive for hypertension and heart disease. SOCIAL HISTORY: He still smokes cigarettes every day. No alcohol abuse. REVIEW OF SYSTEMS: Positive for shortness of breath, weakness and poor appetite. PHYSICAL EXAMINATION: GENERAL: Examined on dialysis, feels better. VITAL SIGNS: Reviewed. HEENT: Pupils round. NECK: Supple. LUNGS: Clear. CARDIOVASCULAR: Regular rate. ABDOMEN: Soft. LOWER EXTREMITIES: No edema. ASSESSMENT: 1. End-stage renal disease, some fluid overload, on dialysis now. We will remove 3.5 liters. 2. Mildly elevated troponin. Cardiology is on the case. 3. Possible chronic obstructive pulmonary disease. [facility] [address] [address] CONSULTATION Name: KRISTINE ASHTON Room: [address] IN ..#: [id number] Admission: 01/19/19 Attend Phys: Arabella Perez MD Discharge: 01/21/19 Date of : 72 Report #: [id number] Thank you very much for this consultation. I will follow with you. Consult done today, 01/20/2019. <ELECTRONICALLY SIGNED> By: Jeramy Mcnair MD 01/23/19 1511 0943 1701Alexjorge Mcnair MD /nt
== END 2019-01-21 17:00 | disposition home health service (06) | DRG 280 ==
LOC: M.ERS 12:32 → M.2W 13:57 → M.TBA-ER 13:57 → M.2W 17:14
PROVIDERS: Family Medicine; ADMIT Family Medicine
PROC: 5A1D70Z Performance of Urinary Filtration, Intermittent, Less than 6 Hours Per Day (ICD-10-PCS; principal; 2019-01-20)
DX: I21.A1 Myocardial infarction type 2 (principal); N18.6 End stage renal disease; I12.0 Hypertensive chronic kidney disease with stage 5 chronic kidney disease or end stage renal disease; I42.9 Cardiomyopathy, unspecified; Z94.0 Kidney transplant status; Z94.83 Pancreas transplant status; I48.0 Paroxysmal atrial fibrillation; I25.10 Atherosclerotic heart disease of native coronary artery without angina pectoris; F17.210 Nicotine dependence, cigarettes, uncomplicated; E78.5 Hyperlipidemia, unspecified; E83.39 Other disorders of phosphorus metabolism; J44.9 Chronic obstructive pulmonary disease, unspecified; Z99.2 Dependence on renal dialysis; Z95.5 Presence of coronary angioplasty implant and graft; I25.2 Old myocardial infarction; Z79.899 Other long term (current) drug therapy; Z88.8 Allergy status to other drugs, medicaments and biological substances; Z88.6 Allergy status to analgesic agent; Z82.49 Family history of ischemic heart disease and other diseases of the circulatory system

== ENCOUNTER 2019-03-09 15:18 | Inpatient (IN) | payer MEDICARE, MEDICAID ==
[~2019-03-09] VITALS: Ht 182.9 cm; Wt 81.9 kg
--- NOTE | ~2019-03-09 | EMS ---
[place] [address] EMS Patient Care Report Name: KRISTINE ASHTON Room: [address] IN [facility]#: [id number] Admission: 03/09/19 Attend Phys: Arabella Perez MD Discharge: Date of : 72 Report #: [id number] THIS REPORT FOR: //name// Report Transmitted: 03/09/2019 17:28 EMS Care Summary [facility] Incident [id number] @ 03/09/2019 14:17 Incident Location [address] [place] [address] Patient KRISTINE ASHTON Male, 48 Years 1970 Patient Address [address] [place] [address] Patient History Chronic Obstructive Pulmonary Disease (COPD),Kidney/Renal Failure,Cardiac - Stent,Dialysis, Patient Allergies Morphine,Azithromycin, Patient Medications Nitroglycerin, Pravastatin, Other, Aspirin, Albuterol, Calcium Citrate, Clopidogrel, Tacrolimus, Carvedilol, Hydralazine, Chief Complaint Chest Pain Disposition Transported No Lights/[place] [facility] Reason Unconscious/Fainting Transported To [facility] Narrative Dispatched: Med 1 was toned for an unresponsive male; [place] [address] EMS Patient Care Report Name: KRISTINE ASHTON Room: [address] IN [facility]#: [id number] Admission: 03/09/19 Attend Phys: Arabella Perez MD Discharge: Date of : 72 Report #: [id number] Chief Complaint/Condition: The pt was found laying supine on the floor of his kitchen, responsive to verbal. He was reporting chest discomfort and general sickness. Unknown loss of consciousness. History of Present Illness/Injury: The family stated that the pt had got up to go to the kitchen and had not returned to the living room. Approximately 5 minutes passed and a family member entered the kitchen to find the pt on the floor; unresponsive. 911 was then called. Assessment: The pt was a male in his 40's, A/Ox4, GCS 14 (responsive to verbal). GCS improved with time. Airway patent, breathing clear, equal, and regular. CMS present with weak radial pulse on initial contact. Skin pale, warm, and dry. See section for further. Reason for Ambulance: Pt had experienced a syncopal episode with reported sickness and chest pain. Pt transported to [facility] per his request. Treatments: EKG/12 Lead showing Sinus with peaked T Waves. Aspirin administered. Zofran administered. Successful. Summary: Med 1 arrived on scene and performed a pt assessment. History gathered. 300 and 408 arrived on scene to assist. 12 lead performed and vitals obtained. Pt removed from the house via scoop stretcher and brought to cot. Pt removed from scoop and placed in Med 1. Further assessment and treatments performed. Transport initiated to [facility]. The pt reported that his nausea and chest pain were improving throughout contact. Pt became more alert/GCS 15 once in unit. Report called into [facility] with no further orders. The pt was brought to ED room 10 and he self transferred to bed. Report given to staff. Signatures obtained. Pt EKGs left with staff. Pt medication list left with pt. Face sheet gathered and Med 1 cleared the facility. Initial Vitals @14:26P: 69,R: 16,GCS: 14,3-Lead ECG: Sinus Rhythm @14:26P: 70,R: 14,BP: 186/116,GCS: 15,Revised Trauma: 12, @14:48P: 69,R: 16,BP: 178/94,GCS: 15,SpO2: 96,Revised Trauma: 12,3-Lead ECG: Sinus Rhythm @14:43P: 69,R: 18,GCS: 15,Glucose: 108,3-Lead ECG: Sinus Rhythm @15:08P: 72,R: 16,BP: 176/95,GCS: 15,SpO2: 91,Revised Trauma: 12,3-Lead ECG: Sinus Rhythm @14:51P: 69,R: 16,GCS: 15,SpO2: 95,3-Lead ECG: Sinus Rhythm Assessments @14:21MENTAL:Person Oriented,Other,Place Oriented,Time Oriented,Event Oriented,SKIN:HEENT:LUNG SOUNDS:General: Nausea,ABDOMEN:General: Nausea,PELVIS//GI:EXTREMITIES:PULSE:Radial: 2+ Normal,NEURO:@15:00MENTAL:Place Oriented,Person Oriented,Event [place]ed,[place] [address] EMS Patient Care Report Name: KRISTINE ASHTON Room: [address] IN M.R.#: [id number] Admission: 03/09/19 Attend Phys: Arabella Perez MD Discharge: Date of : 72 Report #: [id number] Oriented,SKIN:HEENT:LUNG SOUNDS:ABDOMEN:PELVIS//GI:EXTREMITIES:PULSE:Radial: 2+ Normal,NEURO: Impression Altered Level of Consciousness Procedures @14:39Aspirin - 324 mg - OralResponse: Unchanged@14:51Zofran - 4 mg - IntravenousResponse: Improved@14:54Nitro [place] - 0.4 mg - SublingualResponse: Improved@14:45Saline Lock 10cc (18 ga) Site: Forearm-RightResponse: UnchangedSucceeded@14:43Saline Lock 3cc (20 ga) Site: Forearm-RightResponse: UnchangedFailed@14:21ALS AssessmentResponse: UnchangedSucceeded@14:2612-Lead ECGResponse: UnchangedSucceeded@14:5112-Lead ECGResponse: UnchangedSucceeded Timeline 14:17,Psap Call 14:17,Call Received 14:17,Dispatched 14:17,En Route 14:19,On Scene 14:21,At Patient 14:21,ALS Assessment,Response: UnchangedSucceeded, 14:26,12-Lead ECG,Response: UnchangedSucceeded, 14:26,BP: / M,PULSE: 69,RR: 16 R,SPO2: Ox,ETCO2: ,BG: ,PAIN: ,GCS: 14, 14:26,BP: 186/116 M,PULSE: 70,RR: 14 R,SPO2: Ox,ETCO2: ,BG: ,PAIN: ,GCS: 15, 14:39,Aspirin - 324 mg - Oral,Response: Unchanged 14:40,Depart Scene 14:43,BP: / M,PULSE: 69,RR: 18 R,SPO2: Ox,ETCO2: ,B,PAIN: ,GCS: 15, 14:43,Saline Lock 3cc 20 ga Site: Forearm-Right,Response: UnchangedFailed, 14:45,Saline Lock 10cc 18 ga Site: Forearm-Right,Response: UnchangedSucceeded, 14:48,BP: 178/94 M,PULSE: 69,RR: 16 R,SPO2: 96 Ox,ETCO2: ,BG: ,PAIN: ,GCS: 15, 14:51,Zofran - 4 mg - Intravenous,Response: Improved 14:51,12-Lead ECG,Response: UnchangedSucceeded, 14:51,BP: / M,PULSE: 69,RR: 16 R,SPO2: 95 Ox,ETCO2: ,BG: ,PAIN: ,GCS: 15, 14:54,Nitro [place] - 0.4 mg - Sublingual,Response: Improved 15:08,BP: 176/95 M,PULSE: 72,RR: 16 R,SPO2: 91 Ox,ETCO2: ,BG: ,PAIN: ,GCS: 15, 15:16,At Destination 15:57,Call Closed Disclaimer v1.1 Copyright 2019 [employer] This EMS Care Summary contains data elements from the applicable legal record (which may be displayed differently). It is designed to provide pertinent information for the following purposes: continuity of care, clinical quality, and state data reporting. The complete legal record is available to ED staff and administrators of the receiving hospital in [email or web address]'s Patient [place] [address] EMS Patient Care Report Name: KRISTINE ASHTON Room: [address] IN ..#: [id number] Admission: 03/09/19 Attend Phys: Arabella Perez MD Discharge: Date of : 72 Report #: [id number] is provided "as is."
--- NOTE | ~2019-03-09 | CON ---
[address] [address] CONSULTATION Name: ASHTONKRISTINE Room: [address] IN ..#: [id number] Admission: 03/09/19 Attend Phys: Aarbella Perez MD Discharge: Date of : 72 Report #: [id number] THIS REPORT FOR: //name// CC: Kenny Perez DATE OF SERVICE: 03/10/2019 HISTORY OF PRESENT ILLNESS: The patient is a 48-year-old gentleman with medical history significant for end-stage renal disease, on chronic dialysis at [facility] on Saturday, , Saturday schedule. His last dialysis was on Saturday. He presents with the chief complaints of syncope and chest pain. He states that he experiences problem in his home. good, so he was brought to the Emergency Room and he got admitted to evaluate his syncope and chest pain. PAST MEDICAL HISTORY: 1. End-stage renal disease. 2. Coronary artery disease, status post angioplasty with stent placement. He also has a history of weakness, hyperkalemia. 3. History of fluid overload in the past. 4. He also has history of hypertension and kidney and pancreas transplant in the past. FAMILY HISTORY: Positive for hypertension and heart disease. SOCIAL HISTORY: Continues to smoke cigarettes. Denies use of alcohol. MEDICATIONS: Reviewed. REVIEW OF SYSTEMS: Positive for symptoms as I mentioned earlier, otherwise all systems reviewed and negative. PHYSICAL EXAMINATION: GENERAL: He is awake, alert, oriented, no acute distress at the time of my examination. VITAL SIGNS: His blood pressure is 190/99, heart rate 75, afebrile. HEENT: Pupils are round. NECK: Supple. LUNGS: Clear. CARDIOVASCULAR: Regular rate. ABDOMEN: Soft. EXTREMITIES: Lower extremities, no edema. He has a left upper arm AV fistula. LABORATORY DATA: Revealed hemoglobin 15.7. Serum sodium 133, potassium 5.1, BUN 51, creatinine 11.6[place] [address] CONSULTATION Name: ASHTONKRISTINE Room: [address] IN [facility].#: [id number] Admission: 03/09/19 Attend Phys: Arabella Perez MD Discharge: Date of : 72 Report #: [id number] ASSESSMENT: 1. End-stage renal disease, dialysis on Saturday, , Saturday schedule. 2. Hypertension. 3. History of anemia of chronic disease, inactive now. 4. History of diabetes mellitus type 2. PLAN: 1. Dialysis today. 2. Resume his medications and make sure he takes his immunosuppressive. He is on tacrolimus and Myfortic. 3. Neurological and cardiological workup per primary team. Thank you very much for asking my assistance providing dialysis. By: 1101 [id number] Mcnair MD /TYLER
[~2019-03-09 15:18] MED LIST changes: +ADVAIR HFA 230M12 GM INH; +ASPIR 8181 MG PO; +COREG6.25 MG PO; +LIPITOR40 MG PO
[2019-03-09 15:19] VITALS: BP 167/101
[2019-03-09 15:34] LABS: ABSOLUTE BASOPHILS 0.1 thou/uL (0.0-0.2); ABSOLUTE EOSINOPHILS 0.2 thou/uL (0.0-0.7); ABSOLUTE MONOCYTES 0.7 thou/uL (0.0-1.2); ABSOLUTE NEUTROPHILS 3.7 thou/uL (1.6-8.1); BASOPHILS 1.9 %; EOSINOPHILS 3.9 %; HEMATOCRIT 45.6 % (42.0-52.0); HEMOGLOBIN 15.5 gm/dL (14.0-18.0); LYMPHOCYTES 17.7 %; MCH 32.3 pg (26.0-34.0); MCHC 34.1 g/dL (28.0-37.0); MONOCYTES 11.4 %; NUCLEATED RBCS 0 /100WBC; PLATELET COUNT* 292 thou/uL (150-400); POLYS 65.1 %; RDW-CV 16.3 % (10.5-14.5); WBC 5.8 thou/uL (4.0-11.0)
[2019-03-09] MEDS ORDERED: HYDRALAZINE 2525 MG PO (15:34)
[2019-03-09] MEDS ORDERED: CALCIUM ACETAT667 M2 PO (15:34)
[2019-03-09] MEDS ORDERED: NITROGLYCERIN0.4 MG SUBLING (15:35)
[2019-03-09] MEDS ORDERED: MYCOPHENOLIC A360 MG PO (15:35)
[2019-03-09] MEDS ORDERED: PRAVACHOL20 MG PO (15:36)
[2019-03-09] MEDS ORDERED: PHOSLO667 MG PO (15:40)
[2019-03-09 15:42] LABS: ANION GAP 11 mmol/L (7-16); BUN 46 mg/dL (7-18); CALCIUM 8.2 mg/dL (8.5-10.1); CHLORIDE 92 mmol/L (98-107); CO2 28 mmol/L (21-32); CREATININE 10.9 mg/dL (0.6-1.3); GLUCOSE 107 mg/dL (70-99); INR 1.1; POTASSIUM 5.7 mmol/L (3.5-5.1); SODIUM 131 mmol/L (136-145)
[2019-03-09 15:51] LABS: ALBUMIN 3.4 g/dL (3.4-5.0); ALKALINE PHOSPHATASE 125 U/L (46-116); LIPASE 163 U/L (73-393); SGOT 11 U/L (15-37); SGPT 9 U/L (30-65); TOTAL BILIRUBIN 0.6 mg/dL (<0.1-1.0); TOTAL PROTEIN 6.7 g/dL (6.4-8.2); TROPONIN-I LEVEL <0.06 ng/mL (<0.06)
[2019-03-09 18:02] VITALS: BP 179/97
[2019-03-09 18:15] VITALS: BP 183/87
--- NOTE | 2019-03-09 18:50 | NUR ---
ASSUMED PT CARE REPORT RECEIVED FROM NURSE. 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 ON RA. O2 SATURATION IS 99%. FALL PRECAUTION IN PLACE. DIALYSIS FISTULA IN PATENT. INSULIN HUMALIN AND DEXTROSE GIVEN PER DR ORDER FOR ELEVATED K. PT HAS NO COMPLAINT. IV LINE PATENT. WILL CONINUE TO MONITOR
[2019-03-09 19:30] VITALS: BP 170/81
--- NOTE | 2019-03-09 23:09 | NUR ---
INITAL ASSESMENT COMPLETED AT 1930. PT PLEASANT AND COOPERATIVE, DENIED PAIN OR DISCOMFORT AT THAT TIME. PT DEMONSTRATED PROPER USE OF CALL LIGHT AT THAT TIME. PT HAD EMISIS AFTER EATING SNACK AT 1999. DR KABA NOTIFIED. ORDERS RECIEVED. PT GIVEN PRN ZOFRAN WITH GOOD RESULTS.
[2019-03-10] VITALS: BP 178/92
[2019-03-10 04:00] VITALS: BP 190/99
[2019-03-10 05:23] LABS: ABSOLUTE BASOPHILS 0.1 thou/uL (0.0-0.2); ABSOLUTE EOSINOPHILS 0.2 thou/uL (0.0-0.7); ABSOLUTE LYMPHOCYTES 1.3 thou/uL (0.8-5.3); ABSOLUTE MONOCYTES 0.7 thou/uL (0.0-1.2); ABSOLUTE NEUTROPHILS 3.9 thou/uL (1.6-8.1); BASOPHILS 1.3 %; EOSINOPHILS 3.9 %; HEMATOCRIT 46.7 % (42.0-52.0); HEMOGLOBIN 15.7 gm/dL (14.0-18.0); MCH 32.1 pg (26.0-34.0); MCHC 33.6 g/dL (28.0-37.0); MCV 95.8 fL (80.0-100.0); MONOCYTES 10.8 %; MPV 7.1 fl. (7.2-11.1); NUCLEATED RBCS 0 /100WBC; PLATELET COUNT* 270 thou/uL (150-400); RBC 4.88 mil/uL (4.50-6.00); RDW-CV 15.9 % (10.5-14.5); WBC 6.1 thou/uL (4.0-11.0)
--- NOTE | 2019-03-10 06:21 | NUR ---
NO DIZZYNESS, LIGHT HEADEDNESS OR SYNCOPAL EPISODES DURING SHIFT. VITAL SIGNS WITHIN NORMAL LIMITS. PT SINUS RHYTHM ON MONITOR. CALL LIGHT IN REACH. PT USING PROPERLY. WILL CONTINUE PLAN OF CARE.
[2019-03-10 06:38] LABS: CALCIUM 8.3 mg/dL (8.5-10.1); CREATININE 11.6 mg/dL (0.6-1.3); MAGNESIUM 2.8 mg/dL (1.8-2.4); PHOSPHORUS* 9.5 mg/dL (2.5-4.9); POTASSIUM 5.1 mmol/L (3.5-5.1)
--- NOTE | 2019-03-10 07:00 | NUR ---
SPOKE WITH DR MORALES AND REPORTED SYSTOLIC BP > 170 DURING SHIFT. RECIEVED ORDER TO GIVE AM COREG NOW.
--- NOTE | 2019-03-10 11:06 | EKG ---
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 : 1970 Requested By: Virgilio Huynh Order Number: [id number] MD: Alireza Arnold Measurements Intervals [place] Rate: 67 P: 28 CT: 147 QRS: -21 QRSD: 95 T: 59 QT: 444 QTc: 469 Interpretive Statements Sinus rhythm Left ventricular hypertrophy ST elev, probable normal early repol pattern Compared to ECG 01/19/2019 12:38:04 no change Electronically Signed On 03-10-2019 11:06:18 CDT by Alireza Arnold [email or web address] <ELECTRONICALLY SIGNED> By: Alireza Arnold MD, [facility] 03/10/19 1106 1524 1524 Alireza Arnold MD, [facility] /EPI
--- NOTE | 2019-03-10 14:51 | NUR ---
Pt out of room when CM went to assess x2, will f/u later
[2019-03-10 15:55] VITALS: BP 166/91
[2019-03-10 15:56] VITALS: BP 152/98
[2019-03-10 15:57] VITALS: BP 129/68
--- NOTE | 2019-03-10 16:26 | NUR ---
ASSUMED CARE OF PT AROUND 0730 THIS AM. REFER TO ASSESSMENT. PT COMPLETED DIALYSIS TODAY WITH 3L FLUID REMOVAL. EEG COMPLETED. REFER TO RESULTS WHEN AVAILABLE. BLOOD PRESSURE MEDICATION INCREASED FOR HTN MANAGEMENT. ANTICIPATE MRI/MRA TOMORROW D/T MRI MACHINE CLOSED FOR MAINTENANCE TODAY. COMPLETED ORTHOSTATIC VITALS AFTER DIALYSIS TODAY. NOTED TO BE POSITIVE FROM SITTING TO STANDING WITH BLOOD PRESSURE DROPPING FROM 152/98 TO 129/68. NO OTHER CONCERNS AT THIS TIME. CLWR. WCTM.
[2019-03-10 19:20] VITALS: BP 130/76
[2019-03-11] VITALS: BP 164/80
[2019-03-11 04:00] VITALS: BP 169/86
[2019-03-11 05:37] LABS: CALCIUM 8.8 mg/dL (8.5-10.1); POTASSIUM 5.5 mmol/L (3.5-5.1)
[2019-03-11 05:56] LABS: CREATININE 9.2 mg/dL (0.6-1.3)
[2019-03-11 08:00] VITALS: BP 150/74
[2019-03-11] MEDS ORDERED: PRAVACHOL20 MG PO (10:19)
[2019-03-11] MEDS ORDERED: MIDODRINE HCL 55 M1 PO (10:19)
[2019-03-11] MEDS ORDERED: COREG6.25 MG PO (10:19)
--- NOTE | 2019-03-11 10:53 | NUR ---
Pt is A&O. Resides at home with . Independent. No DME. No hx of HH or SNF. Current at [facility]. CM will fax flowsheets and H&P at [place], plan dc today once Neuro signs off.
[2019-03-11 12:04] VITALS: BP 141/83
[2019-03-11 15:19] VITALS: BP 141/83
--- NOTE | 2019-03-11 16:38 | NUR ---
ASSUMED PT CARE AT 0730, FULL ASSESMENT DONE CHARTED. PT A/O X4, DENIES PAIN, DENIES DIZZYNESS. PT UP AD KIRSTEN, VSS, SR ON THE MONITOR. RECEIVED DISCHARGE ORDERS, REVIEWED MRI RESULTS WITH PHYSICIAN. PT AND GIVEN DISCHARGE INSTRUCTIONS, VERBALIZED UNDERSTANDING. PT LEFT WITH AND BELONGINGS AT APPROX 1635.
--- NOTE | 2019-03-12 10:45 | EEG ---
[address] [address] EEG STUDY REPORT Name: KRISTINE ASHTON Room: [address] IN ..#: [id number] Admission: 03/09/19 Attend Phys: Arabella Perez MD Discharge: 03/11/19 Date of : 72 Report #: [id number] THIS REPORT FOR: //name// CC: Kenny Martinezivoryjuliet Arabella Perez DATE OF SERVICE: 03/10/2019 This patient's EEG is being done for an episode of syncope. Background activity in this patient's EEG is about 8-9 Hz and 30 microvolt. This background activity is symmetrical. The patient became drowsy that is associated with bilateral slowing. Photic stimulation is unremarkable. Throughout the record, no active epileptiform activity was noticed. IMPRESSION: This patient's EEG is within normal limits. Thank you very much for this referral. <ELECTRONICALLY SIGNED> By: Yahir Suazo MD 03/12/19 1045 1526 1731Prene Suazo MD /nt
--- NOTE | 2019-03-12 10:45 | CON ---
[address] [address] CONSULTATION Name: KRISTINE ASHTON Room: [address] IN .R.#: [id number] Admission: 03/09/19 Attend Phys: Arabella Perez MD Discharge: 03/11/19 Date of : 72 Report #: [id number] THIS REPORT FOR: //name// CC: Kenny Perez DATE OF SERVICE: 03/09/2019 HISTORY OF PRESENT ILLNESS: This is a 48-year-old male patient who was seen by me for determining any neurological etiology for the patient's episode of syncope. The patient never had this episode before. He does not know what happened. The family found him on the ground. He was unresponsive, but breathing. No tonic-clonic activity was noticed. He woke up spontaneously and feels back to his baseline. He never had this episode before. He indicated he is not a diabetic. He had some question of chest pain. REVIEW OF SYSTEMS: Positive for being on hemodialysis. His last dialysis was on Saturday. He has a history of cardiac stent placement. He does not have any history of seizure. He has a history of kidney and pancreatic transplant as I understand. He is on multiple medications for that. He has a history of coronary artery disease in the past. He is not complaining of any new eye, ENT, respiratory, GI, musculoskeletal, constitutional, dermatological, hematological, psychiatric, throat or allergic symptoms associated with present symptomatology. He does have a history of end-stage renal disease. PAST MEDICAL HISTORY: Positive for being on dialysis. FAMILY HISTORY: Negative for any early age stroke. SOCIAL HISTORY: He smokes, but says he does not drink any alcohol. PHYSICAL EXAMINATION: GENERAL: The patient's examination indicates he is alert, responsive, able to follow simple and complex command. NEUROLOGIC: His speech, concentration, fund of knowledge and memory is at his baseline. Cranial nerve examination 2-12 looks unremarkable. Strength, sensation, reflexes and tone looks symmetrical. He has not walked, so he does not know whether he is stable or not. There is no meningeal sign I could not look at the patient's fundus. EXTREMITIES: There is no edema, cyanosis or jaundice. CARDIAC: Appear unremarkable. LUNGS: No respiratory difficulty or rhonchi was noticed. VITAL SIGNS: Blood pressure is 183/87, respiration is 16, pulse is 66, and temperature [place] 98.0. [place] [address] CONSULTATION Name: KRISTINE ASHTON Room: [address]#: [id number] Admission: 03/09/19 Attend Phys: Arabella Perez MD Discharge: 03/11/19 Date of : 72 Report #: [id number] LABORATORY DATA: Indicate a white count of 5.8 and sodium of 131 and potassium of 5.7. His creatinine is 10.9. He did have a CT scan of the head and that appear unremarkable. IMPRESSION: The patient's episode of syncope does not appear to be neurological in origin. I suspect it is systemic cause because there are multiple causes including cardiac and renal, which can cause these symptoms. However, because of the patient's multisystem problems, it may be desirable to exclude any pathology in that regard. I discussed the situation with the patient. We will get an MRI done tomorrow. We will get an EEG done. Until that shows any abnormality, I do not believe any further neurological workup is indicated and we should concentrate on systemic and Cardiology workup. Thank you very much for this referral. <ELECTRONICALLY SIGNED> By: Yahir Suazo MD 03/12/19 1045 2018 2250Parelliott Suazo MD /nt
== END 2019-03-11 16:35 | disposition home or self-care (01) | DRG 308 ==
LOC: M.ERS 15:18 → M.2W 17:07 → M.TBA-ER 17:07 → M.2W 17:57
PROVIDERS: Emergency Medicine Emergency Medical Services; ADMIT Family Medicine
DX: I48.0 Paroxysmal atrial fibrillation (principal); N18.6 End stage renal disease; Z94.0 Kidney transplant status; Z94.83 Pancreas transplant status; I12.0 Hypertensive chronic kidney disease with stage 5 chronic kidney disease or end stage renal disease; R55 Syncope and collapse; F17.210 Nicotine dependence, cigarettes, uncomplicated; I25.10 Atherosclerotic heart disease of native coronary artery without angina pectoris; E11.22 Type 2 diabetes mellitus with diabetic chronic kidney disease; E87.5 Hyperkalemia; E78.5 Hyperlipidemia, unspecified; E83.39 Other disorders of phosphorus metabolism; E87.8 Other disorders of electrolyte and fluid balance, not elsewhere classified; J44.9 Chronic obstructive pulmonary disease, unspecified; Z99.2 Dependence on renal dialysis; Z95.5 Presence of coronary angioplasty implant and graft; I25.2 Old myocardial infarction; Z88.6 Allergy status to analgesic agent; Z88.1 Allergy status to other antibiotic agents; Z82.49 Family history of ischemic heart disease and other diseases of the circulatory system; Z79.82 Long term (current) use of aspirin; Z79.899 Other long term (current) drug therapy; Z91.19 Patient's noncompliance with other medical treatment and regimen

== ENCOUNTER 2019-04-22 17:55 | Emergency (ER) | payer MEDICARE, MEDICAID ==
[~2019-04-22] VITALS: Ht 182.9 cm; Wt 79.4 kg
[~2019-04-22 17:55] MED LIST changes: +CALCIUM ACETAT667 M2 PO; +MIDODRINE HCL 55 M1 PO; +NITROGLYCERIN0.4 MG SUBLING
[2019-04-22 19:09] LABS: HEMATOCRIT 43.1 % (42.0-52.0); HEMOGLOBIN 14.4 gm/dL (14.0-18.0); MCH 31.2 pg (26.0-34.0); MCHC 33.5 g/dL (28.0-37.0); MCV 93.2 fL (80.0-100.0); MPV 6.9 fl. (7.2-11.1); NUCLEATED RBCS 0 /100WBC; PLATELET COUNT* 255 thou/uL (150-400); RBC 4.62 mil/uL (4.50-6.00); RDW-CV 15.2 % (10.5-14.5); WBC 4.6 thou/uL (4.0-11.0)
[2019-04-22 19:18] LABS: CALCIUM 8.1 mg/dL (8.5-10.1); CREATININE 10.8 mg/dL (0.6-1.3); POTASSIUM 4.1 mmol/L (3.5-5.1)
[2019-04-22 19:22] LABS: ALBUMIN 2.8 g/dL (3.4-5.0); TOTAL BILIRUBIN 0.7 mg/dL (<0.1-1.0); TOTAL PROTEIN 6.4 g/dL (6.4-8.2)
[2019-04-22 20:01] LABS: ABSOLUTE EOSINOPHILS 0.3 thou/uL (0.0-0.7); ABSOLUTE MONOCYTES 0.9 thou/uL (0.0-1.2); ABSOLUTE NEUTROPHILS 2.3 thou/uL (1.6-8.1); PLATELET ESTIMATE ADEQUATE
[2019-04-22] MEDS ORDERED: FLAGYL500 M1 PO ×3 (20:15→20:18)
[2019-04-22] MEDS ORDERED: NORCO 5-325 TA1 EAC1 PO (20:15)
[2019-04-22] MEDS ORDERED: METRONIDAZOLE500 M4 PO (20:20)
[2019-04-22 20:36] VITALS: BP 128/74
== END 2019-04-22 20:37 | disposition home or self-care (01) ==
LOC: M.ERS 17:55
PROVIDERS: Nurse Practitioner Family
DX: R19.7 Diarrhea, unspecified (principal); R10.9 Unspecified abdominal pain; N18.6 End stage renal disease; F17.200 Nicotine dependence, unspecified, uncomplicated; Z99.2 Dependence on renal dialysis; Z94.0 Kidney transplant status; Z95.2 Presence of prosthetic heart valve; Z94.83 Pancreas transplant status; Z88.1 Allergy status to other antibiotic agents; Z88.5 Allergy status to narcotic agent

== ENCOUNTER 2019-07-30 16:50 | Inpatient (IN) | payer MEDICARE, MEDICAID ==
[~2019-07-30] VITALS: Ht 185.4 cm; Wt 83.5 kg
[~2019-07-30 16:50] MED LIST changes: +FLAGYL500 M1 PO; +METRONIDAZOLE500 M4 PO; +NORCO 5-325 TA1 EAC1 PO
[2019-07-30 17:17] VITALS: BP 148/95
[2019-07-30 18:12] LABS: ABSOLUTE BASOPHILS 0.1 thou/uL (0.0-0.2); ABSOLUTE EOSINOPHILS 0.3 thou/uL (0.0-0.7); ABSOLUTE LYMPHOCYTES 0.9 thou/uL (0.8-5.3); ABSOLUTE MONOCYTES 0.8 thou/uL (0.0-1.2); ABSOLUTE NEUTROPHILS 3.6 thou/uL (1.6-8.1); BASOPHILS 2.1 %; HEMATOCRIT 48.5 % (42.0-52.0); HEMOGLOBIN 16.7 gm/dL (14.0-18.0); LYMPHOCYTES 15.1 %; MCH 32.3 pg (26.0-34.0); MCHC 34.5 g/dL (28.0-37.0); MCV 93.6 fL (80.0-100.0); MONOCYTES 13.3 %; MPV 7.7 fl. (7.2-11.1); NUCLEATED RBCS 0 /100WBC; PLATELET COUNT* 207 thou/uL (150-400); POLYS 63.5 %; RBC 5.18 mil/uL (4.50-6.00); RDW-CV 15.9 % (10.5-14.5); WBC 5.7 thou/uL (4.0-11.0)
[2019-07-30 18:20] LABS: ANION GAP 8 mmol/L (7-16); BUN 34 mg/dL (7-18); CALCIUM 8.9 mg/dL (8.5-10.1); CHLORIDE 94 mmol/L (98-107); CO2 32 mmol/L (21-32); CREATININE 8.4 mg/dL (0.6-1.3); GLUCOSE 109 mg/dL (70-99); POTASSIUM 5.3 mmol/L (3.5-5.1); SODIUM 134 mmol/L (136-145)
[2019-07-30 18:21] LABS: APTT 26.4 Seconds (25.0-31.3); PROTIME 10.6 Seconds (9.20-11.50)
[2019-07-30 18:30] LABS: ALBUMIN 3.9 g/dL (3.4-5.0); ALKALINE PHOSPHATASE 140 U/L (46-116); LIPASE 106 U/L (73-393); MAGNESIUM 2.3 mg/dL (1.8-2.4); NT-PRO BRAIN NAT PEPTIDE > 35000 pg/mL (<300); SGOT 17 U/L (15-37); SGPT 11 U/L (30-65); TOTAL BILIRUBIN 0.8 mg/dL (<0.1-1.0); TOTAL PROTEIN 8.2 g/dL (6.4-8.2)
[2019-07-30 20:36] VITALS: BP 135/82
[2019-07-30 21:30] VITALS: BP 148/93
[2019-07-31] VITALS (13 sets, daily range): BP systolic 135–224; BP diastolic 65–115
--- NOTE | 2019-07-31 11:10 | EKG ---
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 : 1970 Requested By: Virgilio Huynh Order Number: [id number] MD: Alireza Arnold Measurements Intervals [place] Rate: 86 P: 67 SD: 135 QRS: 27 QRSD: 102 T: 147 QT: 374 QTc: 448 Interpretive Statements Sinus rhythm Left atrial enlargement Left ventricular hypertrophy Anterior Q waves, possibly due to LVH Nonspecific T abnormalities, lateral leads Compared to ECG 03/09/2019 15:24:20 Atrial abnormality now present Q waves now present T-wave abnormality now present Electronically Signed On 07-31-2019 11:09:58 REFERENCE TEST CLERK by Alireza Arnold [email or web address] <ELECTRONICALLY SIGNED> By: Alireza Arnold MD, [facility] 07/31/19 1109 1714 1714 Alireza Arnold MD, [facility] /EPI
--- NOTE | 2019-07-31 16:34 | CARD ---
[address] [address] CARDIAC CATH REPORT Name: KRISTINE ASHTON Room: [address] IN ..#: [id number] Admission: 07/30/19 Attend Phys: Priti Queen Discharge: Date of : 72 Report #: [id number] THIS REPORT FOR: //name// APPROVED REPORT Study performed: 07/31/2019 13:42:03 Patient Details Patient Status: In-Patient Room #: The patient is a 49 year-old male Event Personnel Yaritza Keenan RN, Terese Oliveira Reeves, Adam RTR Clayton Canales David Client Relations Associate Procedures Performed Art Access - R femoral artery* Art Access - R radial artery Left Heart Cath w/LT ram [id number] CLV Indication Chest pain Risk Factors Hypercholesterolemia, Dialysis Previous Procedures/Diagnoses Previous PCI, Previous Femoral Procedure Admission/Lab Medications/Medications given during procedure Aspirin, Platelet Aff. Inhib. Procedure Narrative The patient was brought electively to the Cardiac Catheterization Laboratory and was prepped and draped in a sterile manner. The right femoral was infiltrated with 2% Lidocaine subcutaneous anesthesia. A Pennecle sheath was inserted into the right femoral artery. Coronary angiography was performed using coronary diagnostic catheters. The right coronary system was accessed and visualized with a Diagnostic catheter. The left coronary system was accessed and visualized with a Diagnostic catheter. The left ventricle was accessed and visualized with a Diagnostic catheter. Left ventricular/Aortic Valve gradient assessed via catheter pullback. Left ventriculogram was performed in NGO projection. Closure device was deployed with a 6 Fr Mynx. The patient tolerated the procedure well and there were no complications associated with the procedure. There was [place] [address] CARDIAC CATH REPORT Name: POLIANA Room: [address] IN [facility]#: [id number] Admission: 07/30/19 Attend Phys: Priti Queen Discharge: Date of : 72 Report #: [id number] attempted and unsuccessful. Intraoperative Conscious Sedation Sedation start time: 1502 Case end Time: 1530 Versed 4 mg Contrast Type and Amount: Visipaque 90 ml Coronary Angiography The patient's coronary anatomy is left dominant. Diagnostic Cath Left Main 0% stenosis LAD long stent that started proximally and extended into the mid LAD. 50% stenosis was noted in the mid portion of the stent Diagonal 3 60% ostial stenosis noted Circumflex 0% stenosis noted Right Coronary 50% mid stenosis noted Left Ventriculography The left ventricular ejection fraction is estimated to be 60-65%. Left ventricular wall motion abnormalities are not present. There is no mitral insufficiency. Hemodynamics The aortic pressure is 159/88 mmHg with a mean of 111 mmHg. The left ventricular pressure is 152/8 mmHg with a mean of mmHg. The left ventricular end diastolic pressure is 10 mmHg. There was no gradient across the aortic valve upon pullback. Pullback from the left ventricle to the aorta revealed no gradient across the aortic valve. Conclusion 1. no significant restenosis of stents in the lad 2. 60% ostial stenosis of the 3rd diagonal branch 3. LVEF 60% Recommendations Aggressive Medical Therapy <ELECTRONICALLY SIGNED> By: Alireza Arnold MD, FACC 07/31/19 1633 1633 1633Dmitra Arnold MD, FACC /INF
[2019-08-01] VITALS: BP 183/97
[2019-08-01 04:00] VITALS: BP 185/97
[2019-08-01 05:22] LABS: ALBUMIN 3.5 g/dL (3.4-5.0); CALCIUM 8.4 mg/dL (8.5-10.1); PHOSPHORUS* 7.7 mg/dL (2.5-4.9); POTASSIUM 5.8 mmol/L (3.5-5.1)
[2019-08-01 05:26] LABS: CREATININE 12.6 mg/dL (0.6-1.3)
[2019-08-01 08:30] VITALS: BP 142/69
[2019-08-01 10:12] VITALS: BP 142/69
[2019-08-01 13:30] VITALS: BP 166/92
[2019-08-01 20:00] VITALS: BP 152/84
[2019-08-02] VITALS: BP 123/60
[2019-08-02 04:00] VITALS: BP 173/89
[2019-08-02 08:00] VITALS: BP 175/95
[2019-08-02 11:24] VITALS: BP 142/69
[2019-08-02 12:32] VITALS: BP 127/80
[2019-08-02 12:34] VITALS: BP 127/80
--- NOTE | 2019-08-03 11:20 | CON ---
[address] [address] CONSULTATION Name: ASHTONANA Room: [address] IN M.R.#: [id number] Admission: 07/30/19 Attend Phys: Priti Queen Discharge: 08/02/19 Date of : 72 Report #: [id number] THIS REPORT FOR: //name// CC: Kenny King DATE OF SERVICE: 07/31/2019 CARDIOLOGY CONSULTATION HISTORY OF PRESENT ILLNESS: The patient is a 49-year-old white male, who I was asked to see in the hospital today after he complained of chest pain. The patient has an extensive past medical history. He has had a long history of coronary artery disease. He has had up to 4 stents placed in [facility] in his right coronary artery. The first stent was placed several years ago. His last stent was placed apparently last year in [facility]. He has a long history of diabetes and developed end-stage renal disease. He was on hemodialysis for a period of time and then a few years ago underwent kidney and pancreas transplant at [facility]. Unfortunately, his kidney failed and he is now back on hemodialysis, but apparently the pancreas took and he no longer requires diabetic medications. He is not very active at this time. He was at dialysis yesterday when he felt a discomfort in his chest. It tended to come and go. After dialysis, he went home. His brought him to the Emergency Room last night. He did note some discomfort going into his left arm. He was short of breath and nauseated. He vomited. He denied the pain being related to the food. He had no fever or cough. Denied trauma to his chest. He has had no bleeding. Denies exertional dyspnea, palpitations or syncope. PAST MEDICAL HISTORY: Otherwise, significant for hip surgery, hypertension. MEDICATIONS: Consist of pravastatin, carvedilol, aspirin, Prograf. ALLERGIES: HE HAS AN ALLERGY TO MORPHINE. FAMILY HISTORY: His grandfather had a stroke. SOCIAL HISTORY: He is . He and his live in [place]. 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 Smokes one-half pack of cigarettes a day. Rarely drinks alcohol. REVIEW OF SYSTEMS: He apparently was told in the past he had a stroke. He has had no peptic ulcer disease, no asthma, no liver disease, no cancer, no chronic skin condition, [place] [address] CONSULTATION Name: KRISTINE ASHTON Room: [address]#: [id number] Admission: 07/30/19 Attend Phys: Priti Queen Discharge: 08/02/19 Date of : 72 Report #: [id number] PHYSICAL EXAMINATION: GENERAL: Revealed a middle-aged male, lying in bed, he appeared in no distress. VITAL SIGNS: He had a blood pressure of 160/80, pulse 80, he is afebrile. HEENT: He was anicteric. Conjunctivae pink. Mucous membranes are moist. NECK: Neck veins are not distended. No carotid bruits. CHEST: Clear to auscultation. CARDIOVASCULAR: Regular rate and rhythm. Grade 2 systolic ejection murmur. ABDOMEN: Soft. EXTREMITIES: Had no edema. Dorsalis pedis pulses 2+ bilaterally. SKIN: Cool and dry. NEUROLOGIC: Nonfocal. His ECG when he arrived last night showed a sinus rhythm, nonspecific T-wave changes. His workup in the Emergency Room, he had a portable chest x-ray that showed normal heart size, clear lung carranza. Previous MRI last February showed no carotid stenosis. The MRI of the head showed small vessel disease, no evidence of acute infarction. Carotid Doppler study done last summer showed no significant stenosis. LABORATORIES: Sodium 134, BUN 34, creatinine 8.4, his glucose was 109. Liver function studies were normal. Troponins all 0.06. His white blood cell count 5.7, hemoglobin 16.7. Previous workup here included an echocardiogram done last January that showed ejection fraction of 60%, aortic sclerosis, biatrial enlargement. Nuclear stress test a year ago in September showed the following results: Ejection fraction 43%; inferior defect that appeared to be fixed; no reversible defects suggestive of previous infarction; however, the inferior defect appeared to represent artifact. IMPRESSION AND RECOMMENDATIONS: 1. Chest pain. The patient has multiple stents in his right coronary artery. I would consider a repeat angiogram. 2. End-stage renal disease. The patient on hemodialysis. 3. Previous pancreatic transplant for diabetes. 4. Hypertension. The patient is on beta-jaz. 5. Tobacco abuse. <ELECTRONICALLY SIGNED> By: Alireza Arnold MD, FACC 08/03/19 1120 1308 2322Dmitra Arnold MD, FACC /nt
--- NOTE | 2019-08-03 13:54 | CON ---
[address] [address] CONSULTATION Name: KRISTINE ASHTON Room: [address] IN .R.#: [id number] Admission: 07/30/19 Attend Phys: Priti Queen Discharge: 08/02/19 Date of : 72 Report #: [id number] THIS REPORT FOR: //name// CC: Kenny King CONSULTING PHYSICIAN: Lonnie King DO. REASON FOR CONSULTATION: End-stage kidney disease. HISTORY OF PRESENT ILLNESS: A 49-year-old gentleman admitted with chest pain. He is chronically on hemodialysis Tuesdays, , Saturdays, followed in [facility]. He has chronically poorly controlled blood pressures. He has underlying history of coronary artery disease and has had stents in the past at [place]. Dr. Arnold from Cardiology is seeing him and cardiac catheterization is being contemplated. The patient himself at present time does not have any complaints and is hoping to go home soon. REVIEW OF SYSTEMS: Constitutional, psych, heme, eyes, ENT, respiratory, cardiac, GI, , endocrine, all negative except as documented above. PAST MEDICAL HISTORY: History of kidney and pancreas transplant in 2008, coronary artery disease with stents, history of hypertension. SOCIAL HISTORY: Positive for tobacco. FAMILY HISTORY: Not pertinent in this 49-year-old gentleman. CURRENT MEDICATIONS: Reviewed. PHYSICAL EXAMINATION: VITAL SIGNS: Blood pressure is 160/85, pulse 83, respirations 18 and temperature 36.7. GENERAL: No acute distress. EYES: Open. EARS: Externally normal. NECK: Supple. CARDIOVASCULAR: Regular rate. LUNGS: No crackles. ABDOMEN: Soft. MUSCULOSKELETAL: Nontender. PSYCHIATRIC: Awake, alert. LABORATORY DATA: White cell count 5.7, hemoglobin 16.7, and platelets 207. Sodium 134, potassium 5.3, chloride 94, bicarbonate 32, BUN 34, creatinine 8.4, glucose 109, calcium 8.9, magnesium 2.3, and albumin 3.9. [place] [address] CONSULTATION Name: KRISTINE ASHTON Room: [address]#: [id number] Admission: 07/30/19 Attend Phys: Priti Queen Discharge: 08/02/19 Date of : 72 Report #: [id number] ASSESSMENT AND PLAN: 1. End-stage kidney disease, hemodialysis Tuesdays, and Saturdays at the [facility]. 2. Hypertension, poorly controlled. 3. Coronary artery disease with history of stenting. 4. History of kidney/pancreas transplant in 2008. PLAN: 1. No acute indications for dialysis today. We will plan dialysis tomorrow. 2. If blood pressure remains difficult to control, carvedilol can be increased. 3. Dr. Arnold is contemplating cardiac catheterization today. We will plan dialysis tomorrow and follow along with you for dialysis needs. Thank you for requesting my opinion in the care and management of this patient. <ELECTRONICALLY SIGNED> By: Rajesh Dickens MD 08/03/19 1354 1340 0026Abipriti Dickens MD /nt
== END 2019-08-02 16:15 | disposition home or self-care (01) | DRG 286 ==
LOC: M.ERS 16:50 → M.TBA-ER 18:56 → M.2W 18:56
PROVIDERS: Emergency Medicine Emergency Medical Services; Internal Medicine Nephrology; ADMIT Internal Medicine
PROC: 4A023N7 Measurement of Cardiac Sampling and Pressure, Left Heart, Percutaneous Approach (ICD-10-PCS; principal; 2019-07-31)
PROC: B211YZZ Fluoroscopy of Multiple Coronary Arteries using Other Contrast (ICD-10-PCS; principal; 2019-07-31)
PROC: B215YZZ Fluoroscopy of Left Heart using Other Contrast (ICD-10-PCS; principal; 2019-07-31)
PROC: 5A1D70Z Performance of Urinary Filtration, Intermittent, Less than 6 Hours Per Day (ICD-10-PCS; 2019-08-01)
DX: I25.119 Atherosclerotic heart disease of native coronary artery with unspecified angina pectoris (principal); N18.6 End stage renal disease; I12.0 Hypertensive chronic kidney disease with stage 5 chronic kidney disease or end stage renal disease; Z94.0 Kidney transplant status; Z94.83 Pancreas transplant status; D68.69 Other thrombophilia; N25.81 Secondary hyperparathyroidism of renal origin; T82.855A Stenosis of coronary artery stent, initial encounter; E11.22 Type 2 diabetes mellitus with diabetic chronic kidney disease; F17.210 Nicotine dependence, cigarettes, uncomplicated; I48.91 Unspecified atrial fibrillation; E78.5 Hyperlipidemia, unspecified; Y84.0 Cardiac catheterization as the cause of abnormal reaction of the patient, or of later complication, without mention of misadventure at the time of the procedure; Y92.234 Operating room of hospital as the place of occurrence of the external cause; Z99.2 Dependence on renal dialysis; Z95.5 Presence of coronary angioplasty implant and graft; Z79.899 Other long term (current) drug therapy; Z79.82 Long term (current) use of aspirin; Z88.6 Allergy status to analgesic agent; Z82.3 Family history of stroke; Z88.1 Allergy status to other antibiotic agents; Z82.49 Family history of ischemic heart disease and other diseases of the circulatory system; Z91.19 Patient's noncompliance with other medical treatment and regimen

== ENCOUNTER 2019-09-06 10:23 | Inpatient (IN) | payer MEDICARE, MEDICAID ==
[~2019-09-06] VITALS: Ht 182.9 cm; Wt 84.5 kg
[2019-09-06 10:33] VITALS: BP 144/77
[2019-09-06 11:19] LABS: ABSOLUTE EOSINOPHILS 0.3 thou/uL (0.0-0.7); EOSINOPHILS 4.2 %; HEMOGLOBIN 13.9 gm/dL (14.0-18.0)
[2019-09-06 11:21] LABS: ABSOLUTE BASOPHILS 0.1 thou/uL (0.0-0.2); ABSOLUTE LYMPHOCYTES 0.8 thou/uL (0.8-5.3); ABSOLUTE MONOCYTES 0.9 thou/uL (0.0-1.2); ABSOLUTE NEUTROPHILS 4.7 thou/uL (1.6-8.1); BASOPHILS 1.1 %; HEMATOCRIT 41.8 % (42.0-52.0); LYMPHOCYTES 12.5 %; MCH 30.8 pg (26.0-34.0); MCHC 33.2 g/dL (28.0-37.0); MCV 92.7 fL (80.0-100.0); MONOCYTES 12.9 %; NUCLEATED RBCS 0 /100WBC; PLATELET COUNT* 228 thou/uL (150-400); POLYS 69.3 %; RBC 4.51 mil/uL (4.50-6.00); RDW-CV 16.2 % (10.5-14.5); WBC 6.8 thou/uL (4.0-11.0)
[2019-09-06 11:29] LABS: PROTIME 10.4 Seconds (9.20-11.50)
[2019-09-06 11:30] LABS: ANION GAP 9 mmol/L (7-16); BUN 43 mg/dL (7-18); CALCIUM 7.7 mg/dL (8.5-10.1); CHLORIDE 96 mmol/L (98-107); CO2 33 mmol/L (21-32); CREATININE 10.8 mg/dL (0.6-1.3); GLUCOSE 175 mg/dL (70-99); POTASSIUM 5.4 mmol/L (3.5-5.1); SODIUM 138 mmol/L (136-145)
[2019-09-06 11:40] LABS: ALBUMIN 3.5 g/dL (3.4-5.0); ALKALINE PHOSPHATASE 134 U/L (46-116); NT-PRO BRAIN NAT PEPTIDE > 35000 pg/mL (<300); SGOT 15 U/L (15-37); SGPT 10 U/L (30-65); TOTAL BILIRUBIN 0.7 mg/dL (<0.1-1.0); TOTAL PROTEIN 7.7 g/dL (6.4-8.2)
[2019-09-06 13:14] LABS: BE 6.3 mmol/L (-2 to +3); PCO2 38.6 mmHg (35.0-45.0); PO2 77.3 mmHg (75.0-100.0); pH 7.505 (7.340-7.450)
--- NOTE | 2019-09-06 15:08 | EKG ---
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 : 1970 Requested By: Kellen Saul Order Number: [id number] MD: Wally Whitehead Measurements Intervals [place] Rate: 71 P: 47 NH: 137 QRS: -7 QRSD: 89 T: 92 QT: 449 QTc: 488 Interpretive Statements Sinus rhythm Probable left atrial enlargement Left ventricular hypertrophy Nonspecific T abnormalities, lateral leads ST elev, probable normal early repol pattern Borderline prolonged QT interval Compared to ECG 07/30/2019 17:14:07 ST (T wave) deviation now present Q waves no longer present T-wave abnormality still present Electronically Signed On 09-06-2019 15:07:41 OIL FILTERS INSPECTOR by Wally Whitehead [email or web address] <ELECTRONICALLY SIGNED> By: Dakota Whitehead MD, [facility] 09/06/19 1507 1050 1050 Dakota Whitehead MD, [facility] /EPI
[2019-09-06 16:36] VITALS: BP 157/80
--- NOTE | 2019-09-06 17:52 | NUR ---
PT ADMITTED TO ROOM 202 WITH ORTHOSTATIC HYPOTENSION. PT REPORTS THAT YESTERDAY AFTER DIALYSIS (,,SATURDAY DIALYSIS)HE FELT DIZZY AND VOMITED 5-6 TIMES. HIS BP WAS LOW AT THAT TIME. TODAY HE BEGAN FEELING GENERALIZED NUMBNESS,TINGLING AND CRAMPING ALL OVER BODY THAT LASTED FOR 2 HOURS, CAME ON FOR NO REASON AND STOPPED. PT ORTHOSTATIC IN ED WAS POSITIVE. PT BP ELEVATED BUT VSS OTHERWISE STABLE AT THIS TIME ON RA. PT IS AOX4 AND ANSWERS QUESTIONS APPROPRIATELY.MONITOR SHOWS SR. PT HAD HIS FISTULA NARROWED RECENTLY AND STILL HAS SUTURES IN PLACE ON LEFT FA. MEDICATIONS REVIEWED WITH PT. PT EDUCATED ON TREATMENTS,PLAN OF CARE, FALL PRECAUTIONS,USE OF CALL LIGHT AND DIET. PT RESTING WITH CALL LIGHT AT THIS TIME.
[2019-09-06 18:00] VITALS: BP 161/86
[2019-09-06 20:00] VITALS: BP 159/88
[2019-09-06 21:11] LABS: ALBUMIN 3.5 g/dL (3.4-5.0); POTASSIUM 5.3 mmol/L (3.5-5.1)
[2019-09-06 23:34] VITALS: BP 158/97; BP 182/97
[2019-09-07 03:30] VITALS: BP 190/100
--- NOTE | 2019-09-07 05:59 | NUR ---
ASSUMED CARE OF PT AFTER REPORT AT 1930. PT A&OX4. VSS. PHYSICAL ASSESSMENT COMPLETED AND CHARTED. PT ON RA. PT TRACING SR ON TELE. PT UPSTANBY TO RESTROOM. PT DENIES ANY PAIN OR DISCOMFORT. PT WITH EPISODE OF BP 190/100-DR SANDOVAL MADE AWARE WITH NEW ORDERS. FALL PREACUTIONS IN PLACE. CALL LIGHT WITHIN REACH.
[2019-09-07 06:30] VITALS: BP 177/77
[2019-09-07 08:00] VITALS: BP 148/94
[2019-09-07 10:48] LABS: INFLUENZA A ANTIGEN Negative (Negative); INFLUENZA B ANTIGEN Negative (Negative)
--- NOTE | 2019-09-07 11:51 | NUR ---
Nutrition: Consult received for "other." Pt admitted with orthostatic hypotension s/p dialysis. H/o ESRD/kidney transplant, pancreas transplant, COPD/smoker, CAD/stent. BG 135, albumin 3.5. CHO controlled diet. RX noted. Wt: 182#. Discharge summary is in. No nutirtion interventions needed. Low to mild risk.
[2019-09-07 12:00] VITALS: BP 166/91
--- NOTE | 2019-09-07 14:16 | NUR ---
cm completed initial assessment to diann d/c planning. pt states lives at home w/spouse. states they have no other family or community support. pt is disabled and working on medicaid w/spend down. pt states he is semi-active and independent w/adls. pt drives. has no dme nor any hx w/snf or hh. cm to remain avail to assist as needed.
--- NOTE | 2019-09-07 15:49 | 2DMMODE ---
[place] [address] 2 D/M-MODE ECHOCARDIOGRAM Name: KRISTINE ASHTON Room: [address] IN [facility]#: [id number] Admission: 09/06/19 Attend Phys: Lonnie King Discharge: Date of : 72 Date of Service: 09/07/19 1548 Report #: [id number] THIS REPORT FOR: cc: Kenny Miller MD, Matthew D MD Holkins,Kristine Vasquez MD [facility] ~ APPROVED REPORT Study performed: 09/07/2019 11:41:48 EXAM: Comprehensive 2D, Doppler, and color-flow Echocardiogram Patient Location: In-Patient Room #: 202 BSA: 2.05 HR: 72 bpm BP: 166/91 mmHg Other Information Study Quality: Good Indications Dizziness and Vertigo 2D Dimensions IVSd: 14.57 (7-11mm) LVOT Diam: 20.05 (18-24mm) LVDd: 53.35 mm PWd: 14.36 (7-11mm) Ascending Ao: 34.89 (22-36mm) LVDs: 30.54 (25-40mm) Aortic Root: 29.80 mm Volumes Left Atrial Volume (Systole) LA ESV Index: 29.60 mL/m2 Aortic Valve AoV Peak Buzz.: 2.04 m/s AO Peak Gr.: 16.66 mmHg LVOT Max P.87 mmHg AO Mean Gr.: 8.83 mmHg LVOT Mean P.78 mmHg LVOT Max V: 1.40 m/s AO V2 VTI: 37.02 cm LVOT Mean V: 0.89 m/s EUSEBIO (VTI): 2.46 cm2 LVOT V1 VTI: 28.82 [place] [address] 2 D/M-MODE ECHOCARDIOGRAM Name: KRISTINE ASHTON Room: [address] IN ..#: [id number] Admission: 09/06/19 Attend Phys: Lonnie King Discharge: Date of : 72 Date of Service: 09/07/19 1548 Report #: [id number] E/A Ratio: 0.86 MV Decel. Time: 258.99 ms MV E Max Buzz.: 0.88 m/s MV PHT: 75.11 ms MVA (PHT): 2.93 cm2 TDI E/Lateral E': 8.80 E/Medial E': 14.67 Medial E' Buzz.: 0.06 m/s Lateral E' Buzz.: 0.10 m/s Pulmonary Valve PV Peak Buzz.: 1.09 m/s PV Peak Gr.: 4.73 mmHg Left Ventricle The left ventricle is normal size. There is normal LV segmental wall motion. Moderate concentric left ventricular hypertrophy. Left ventricular systolic function is mildly decreased. LVEF is 45%. Grade I - abnormal relaxation pattern. Right Ventricle The right ventricle is normal size. The right ventricular systolic function is normal. Atria The left atrium size is normal. The right atrium size is normal. Aortic Valve Aortic valve is mildly calcified. Trace aortic regurgitation. No hemodynamically significant valvular aortic stenosis. Mitral Valve Mild mitral annular calcification. There is no mitral valve regurgitation noted. No evidence of mitral valve stenosis. Tricuspid Valve The tricuspid valve is normal in structure. There is no tricuspid valve regurgitation noted. Pulmonic Valve The pulmonary valve is normal in structure. There is no pulmonic valvular regurgitation. Great Vessels The aortic root is normal in size. IVC is [place] [address] 2 D/M-MODE ECHOCARDIOGRAM Name: ASHTONANA Room: [address] IN [facility]#: [id number] Admission: 09/06/19 Attend Phys: Lonnie King Discharge: Date of : 72 Date of Service: 09/07/19 1548 Report #: [id number] collapses >50% with inspiration. Pericardium There is no pericardial effusion. <Conclusion> The left ventricle is normal size. Moderate concentric left ventricular hypertrophy. Left ventricular systolic function is mildly decreased. LVEF is 45%. Grade I - abnormal relaxation pattern. The right ventricle is normal size. The left atrium size is normal. Aortic valve is mildly calcified. Trace aortic regurgitation. No hemodynamically significant valvular aortic stenosis. Mild mitral annular calcification. There is no mitral valve regurgitation noted. No evidence of mitral valve stenosis. The tricuspid valve is normal in structure. IVC is normal in size and collapses >50% with inspiration. There is no pericardial effusion. There is normal LV segmental wall motion. <ELECTRONICALLY SIGNED> By: Kristine Park MD, FACC 09/07/19 1548 1548 1548 Kristine Park MD, FACC /INF
[2019-09-07 20:00] VITALS: BP 175/90
--- NOTE | 2019-09-07 21:03 | NUR ---
PT HAS BEEN RESTING T/O DAY [facility]. PT C/O NAUSEA AND VOMITED FOLLOWING LUNCH THAT WAS RESOLVED WITH REST. PT IS FATIGUED, C/O DIZZINESS WHEN CHANGING POSITIONS. ORTHOSTATIC VS POSITIVE. BP IS ELEVATED AT REST. EDUCATION ON ORTHOSTATIC HYPOTENSION, RELIEF AND TREATMENTS GIVEN TO PT. PT TO BE DCD WITH TETE GARCÍA. CAME IN AT END OF SHIFT VERY UPSET AND DISTRAUGHT WHEN I HAD MENTIONED POSSIBLE DISCHARGE, STATING THAT THE PT IS VERY SICK AND SOMETHING IS WRONG.FEELS LIKE HE IS BEING DCD TOO EARLY. SPOKE WITH PT SPOUSE, LISTENED TO FRUSTRATIONS AND EDUCATED PT ON BEING UPFRONT ABOUT SYMPTOMS AND TO NOT BE AFRAID TO TELL US HOW HE IS FEELING. PT RESTING AT THIS TIME.
[2019-09-08 00:07] VITALS: BP 209/112
[2019-09-08 04:37] VITALS: BP 189/96
--- NOTE | 2019-09-08 05:08 | NUR ---
PT ALERT ORIENTED. UP WITH STD BY ASSIST. HYDRALAZINE GIVEN TWICE FOR HYPERTENTION. ON RA. DENIES PAIN. L ARM AV FISTULA WITH SUTURES IN PLACE POSITIVE THRILL POSITIVE BRUIT. WCTM
[2019-09-08 05:15] VITALS: BP 155/78
[2019-09-08 15:17] LABS: HEMOGLOBIN 13.7 gm/dL (14.0-18.0); WBC 3.2 thou/uL (4.0-11.0)
[2019-09-08 15:19] LABS: HEMATOCRIT 40.5 % (42.0-52.0); MCH 31.3 pg (26.0-34.0); NUCLEATED RBCS 0 /100WBC; PLATELET COUNT* 189 thou/uL (150-400); RDW-CV 15.6 % (10.5-14.5)
[2019-09-08 15:25] LABS: ALBUMIN 2.9 g/dL (3.4-5.0); CALCIUM 8.2 mg/dL (8.5-10.1); CREATININE 9.3 mg/dL (0.6-1.3); POTASSIUM 5.4 mmol/L (3.5-5.1); TOTAL BILIRUBIN 0.5 mg/dL (<0.1-1.0); TOTAL PROTEIN 6.7 g/dL (6.4-8.2)
[2019-09-08 15:49] LABS: ABSOLUTE EOSINOPHILS 0.1 thou/uL (0.0-0.7); ABSOLUTE LYMPHOCYTES 0.8 thou/uL (0.8-5.3); ABSOLUTE MONOCYTES 0.5 thou/uL (0.0-1.2); ABSOLUTE NEUTROPHILS 1.7 thou/uL (1.6-8.1); ATYPICAL LYMPHS 4 %; LARGE PLATELETS OCCASIONAL; METAMYELOCYTES 1 %
[2019-09-08 15:50] LABS: ANISOCYTOSIS Occasional; CLUMPED PLTS OCCASIONAL; PLATELET ESTIMATE ADEQUATE
[2019-09-08 15:54] VITALS: BP 107/59
[2019-09-08 16:29] VITALS: BP 129/75
--- NOTE | 2019-09-09 10:24 | CON ---
[address] [address] CONSULTATION Name: KRISTINE ASHTON Room: [address] IN ..#: [id number] Admission: 09/06/19 Attend Phys: Priti Queen Discharge: 09/08/19 Date of : 72 Report #: [id number] THIS REPORT FOR: //name// cc: Kenny Miller MD, Matthew D MD ~ THIS REPORT FOR: //name// CC: Kenny King DATE OF SERVICE: 09/08/2019 NEPHROLOGY CONSULTATION CONSULTING PHYSICIAN: Dr. Hernandez. REASON FOR NEPHROLOGY CONSULTATION: End-stage renal disease for maintenance hemodialysis. REASON FOR ADMISSION: Orthostatic hypotension. HISTORY OF PRESENT ILLNESS: This is a 49-year-old male with past medical history of end-stage renal disease, on hemodialysis and hypertension along with other medical problems who came in because his blood pressure is running low 90/50 on the day of his dialysis, which was Saturday. He also was having nausea and vomiting before he came in here about 5-6 times that night. He is being treated for gastroenteritis. He was found to have orthostatic hypotension, although his blood pressures have been high now. I saw him on dialysis today and he still feels miserable with vomiting. He is status post failed renal transplant. He also has a history of a pancreatic transplant in 2008 and he takes mycophenolate and tacrolimus. His a.m. cortisol was borderline low. His echocardiogram was checked and his EF was 45% with grade 1 diastolic dysfunction. ALLERGIES: MORPHINE, AZITHROMYCIN. REVIEW OF SYSTEMS: As mentioned in history of present illness, otherwise 10-point review of systems are negative. The patient also reports that he has been having episodes of hypotension for quite some time now. HOME MEDICATIONS: Include pravastatin, carvedilol, aspirin, and CellCept, tacrolimus, clopidogrel, and nitroglycerin. PAST MEDICAL AND SURGICAL HISTORY: Includes an ESRD, on hemodialysis every Saturday, and Saturday. He goes to [facility]. He has a left arm AV fistula, recently had surgery done to have it narrowed, 2008 [place] [address] CONSULTATION Name: KRISTINE ASHTON Room: [address]#: [id number] Admission: 09/06/19 Attend Phys: Priti Queen Discharge: 09/08/19 Date of : 72 Report #: [id number] transplant status post failure, on dialysis now. Pancreatic transplant in 2008, 3 cardiac stents, likely COPD. FAMILY HISTORY: Heart disease, hypertension. SOCIAL HISTORY: Smokes every day. Denies alcohol use, denies any recreational drug use. PHYSICAL EXAMINATION: VITAL SIGNS: Blood pressure is 155/78, pulse is 85, temperature 36.6, respiratory rate 22 and pulse ox 96%. He is on 2 liters of oxygen by nasal cannula. GENERAL: He is awake, alert, oriented x3. His face is flushed. He was seen on dialysis. HEAD AND EYES: Atraumatic, normocephalic. EARS, NOSE, AND THROAT: Normal ears and nose. Mucous membranes are moist. NECK: No JVD. CHEST: Bilaterally clear to auscultation anteriorly. No crackles or wheezing. CARDIOVASCULAR: S1, S2 normal. No murmurs or rubs. ABDOMEN: Soft, nondistended, nontender. Bowel sounds are present. EXTREMITIES: Lower extremities, there is no lower extremity edema. DIALYSIS ACCESS: Left arm radiocephalic fistula with stitches on it and is currently in use. NEUROLOGICAL FUNCTION: Gross neurological function is intact. PSYCHIATRIC: Mood and affect seems to be normal. LABORATORY DATA: His white count 6.8, his hemoglobin 13.9. His sodium is 139, his potassium is 5.2. Other labs are reviewed. IMAGING: Head CT, carotid Doppler, chest x-ray were reviewed. ASSESSMENT: 1. End-stage renal disease, on hemodialysis Saturday, and Saturday. 2. Orthostatic hypotension. 3. History of failed renal transplant in 2008, history of pancreatic transplant as well. 4. Nausea and vomiting. PLAN: 1. Discussed with Dr. Hernandez and since his cortisol is borderline low, it was around 8, I agree with doing an ACTH stim test. 2. Prograf level is being checked as well. 3. He should be on a renal diet. 4. Agree with antibiotics [place] [address] CONSULTATION Name: KRISTINE ASHTON Room: [address] IN ..#: [id number] Admission: 09/06/19 Attend Phys: Priti Queen Discharge: 09/08/19 Date of : 72 Report #: [id number] Thank you for this consultation. We will continue to follow for dialysis needs. The patient was seen on dialysis today. <ELECTRONICALLY SIGNED> By: Tere Evans MD 09/09/19 [id number] Evans MD /nt
== END 2019-09-08 16:25 | disposition home or self-care (01) | DRG 391 ==
LOC: M.ERS 10:23 → M.2W 13:57 → M.TBA-ER 13:57 → M.2W 16:46
PROVIDERS: Internal Medicine; Personal Emergency Response Attendant; ADMIT Internal Medicine
PROC: 5A1D70Z Performance of Urinary Filtration, Intermittent, Less than 6 Hours Per Day (ICD-10-PCS; principal; 2019-09-08)
DX: A08.4 Viral intestinal infection, unspecified (principal); N18.6 End stage renal disease; I13.2 Hypertensive heart and chronic kidney disease with heart failure and with stage 5 chronic kidney disease, or end stage renal disease; N17.9 Acute kidney failure, unspecified; Z94.83 Pancreas transplant status; Z94.0 Kidney transplant status; T86.12 Kidney transplant failure; I95.1 Orthostatic hypotension; F17.210 Nicotine dependence, cigarettes, uncomplicated; I50.9 Heart failure, unspecified; I25.10 Atherosclerotic heart disease of native coronary artery without angina pectoris; J44.9 Chronic obstructive pulmonary disease, unspecified; E87.5 Hyperkalemia; E83.41 Hypermagnesemia; Z99.2 Dependence on renal dialysis; Z95.5 Presence of coronary angioplasty implant and graft; Z79.82 Long term (current) use of aspirin; Z79.899 Other long term (current) drug therapy; Z88.6 Allergy status to analgesic agent; Z88.1 Allergy status to other antibiotic agents; I25.2 Old myocardial infarction; Z88.5 Allergy status to narcotic agent; Z82.49 Family history of ischemic heart disease and other diseases of the circulatory system; Y83.8 Other surgical procedures as the cause of abnormal reaction of the patient, or of later complication, without mention of misadventure at the time of the procedure